=== PATIENT | female | born 1960 | race African-American/Black ===

== ENCOUNTER 2022-07-08 15:20 | Inpatient (IN) | payer OTHER, SELFPAY ==
[2022-07-08 15:49] VITALS: BP 119/72; BP 138/62; PULSE 104; PULSE 91; RESP 18; TEMP 37; O2SAT 95; O2SAT 97; BMI 30.2
--- NOTE | 2022-07-08 15:59 | ED.PSYCH ---
HPI - Psych General Chief Complaint: Psychiatric Symptoms Stated Complaint: psych eval Time Seen by Provider: 07/08/22 15:57 Source: patient Mode of arrival: ambulatory Limitations: no limitations History of Present Illness HPI Narrative: 62-year-old female hx of schizoaffective disorder, bipolar disorder, hypertension and hyperlipidemia presenting to the emergency department with complaints of erretic behavior, angry outburst, not feeling right since this morning. Patient tells me she started freaking out at home, she made family members cry, then she cried. She tells me that she has been taking all her medications however it was reported to EMS that she was not taking her medications. She tells me she feels like they are not helping. According to the Section 12 that patient was brought in on she has a history of self-harm, non med compliance. Patient does admit that she has been feeling it easily agitated and angry over the past day or 2. She tells me that she has a mild headache and she thinks it is because her contact lenses are dry, she tells me that this always happens. This feels like her typical headache, no vision changes, dizziness or head trauma. She denies visual, auditory and tactile hallucinations. Denies drugs, alcohol and tobacco. Denies suicidal and homicidal ideation. She denies any other medical complaints at this time. MD complaint: suicidal ideation Onset (ago): unknown Duration: constant Related Data Allergies Allergy/AdvReac Type Severity Reaction Status Date / Time latex Allergy Rash Verified 07/08/22 16:13 lithium Allergy Unknown Verified 07/08/22 16:13 Review of Systems Review of Systems: Constitutional : No Weight loss, No Fever, No Chills, No Fatigue, No Malaise ENT/Mouth : No sore throat, No Rhinorrhea Eyes: No Eye Pain, No Swelling, No Redness Cardiovascular : No Chest Pain, No SOB, No Dyspnea on Exertion, No Orthopnea, No Edema, No Palpitations Respiratory : No Cough, No Sputum, No Wheezing Gastrointestinal : No Nausea, No Vomiting, No Diarrhea, No Constipation, No abdominal Pain, No Hematochezia, No Melena Genitourinary : No Dysuria, No Urinary Frequency, No Hematuria, Musculoskeletal : No joint pain, No Myalgias, No Joint Swelling Skin : No Skin Lesions, No rash Neuro : No Weakness, No Numbness, No Dizziness, + Headache Psych : No Anxiety/Panic, No Depression, No VH,AH,TH, No SI or HI All other systems reviewed and are negative Yes all other systems are reviewed and are negative COUNTS INCLUDE 234 BEDS AT THE [facility] Past Medical History Attestation statement: The following information was validated with the patient. Source: old records reviewed and nursing notes reviewed Medical History (Updated 07/08/22 @ 16:12 by CUCA Stokes) Athlete's foot Bipolar disorder Hyperlipemia Hypertension Schizoaffective disorder Type 2 diabetes mellitus Social History Social History Advance Directives: No Advance Directives Information Provided: No Patient : No Physical Exam Vital Signs: Vital Signs: Last Vital Signs Temp 98.6 F 07/08/22 15:49 Pulse 91 07/08/22 15:49 Resp 18 07/08/22 15:49 BP 119/72 07/08/22 15:49 Pulse Ox 97 07/08/22 15:49 O2 Del Method 07/08/22 15:49 BMI result Body Mass Index 30.2 VSS Appearance: Alert.? Oriented X3.? No acute distress.? Head: Normocephalic, atraumatic, no step-offs or deformities Eyes: Pupils equal, round and reactive to light.?? Neck: Normal inspection.? Neck supple.? CVS: Normal heart rate and rhythm.? Pulses normal.? Respiratory: No respiratory distress.? Breath sounds normal.? Abdomen: Soft and nontender.? Skin: Skin warm and dry.? Normal skin color.? Normal skin turgor.? Extremities: No lower extremity edema.? No calf ttp. 5/5 strength to bilateral upper and lower extremities Neuro: Oriented X 3.? No motor deficit.? No sensory deficit. CN 2-12 intact. Ambulating with steady gait normal cordination Course Reevaluation(s) Reevaluation #1: CBC within normal limits. Chemistry without electrolyte abnormalities that require intervention. UA negative for infection, patient asymptomatic, epithelial cells present with may indicate contaminated specimen. Urine tox negative. Ethanol negative. COVID negative. At this time patient placed in physician observation to allow more time for evaluation by the behavioral health team. Patient's vital signs are stable, calm cooperative, NAD. Will continue to monitor. Time: 17:19 MDM - Psych MDM Narrative Medical decision making narrative: 1600 62-year-old female presents to the emergency department on Section 12 for erratic behavior, irritation/anger times a few days Physical examination benign Patient describes headache as her typical, she is ambulating with steady gait with a nonfocal neuro exam I do not suspect stroke or posterior stroke. Alison typical headache Plan at this time is to obtain medical clearance and evaluation by the behavioral health team. Medical Records Attestation: I reviewed the patient's medical records. Lab Data Attestation: I reviewed the patient's lab results. Result diagrams: 07/08/22 16:20 07/08/22 16:20 Labs: Lab Results 07/08/22 07/08/22 07/08/22 Range/Units 16:20 16:20 16:20 WBC 7.1 (4.8-10.8) X10*3/uL RBC 4.34 (4.20-5.50) X10*6/uL Hgb 12.5 (12.0-16.0) g/dl Hct 38.2 (37.0-47.0) % MCV 88.0 (80.0-98.0) fL MCH 28.8 (27.0-33.0) pg MCHC 32.7 (31.0-35.0) g/dl RDW 15.3 (11.0-16.0) % Plt Count 274 (160-400) X10*3/uL MPV 9.6 (9.4-12.3) fL Immature Gran % (Auto) 0.4 (0.0-0.4) % Neut % (Auto) 65.9 (45-73) % Lymph % (Auto) 25.1 (20-40) % Morris % (Auto) 6.6 (2-11) % Eos % (Auto) 1.7 (0-4) % Baso % (Auto) 0.3 (0-2) % Lymph # (Auto) 1.8 (1.2-4.9) X10*3/uL Morris # (Auto) 0.5 (0.1-1.2) X10*3/uL Eos # (Auto) 0.1 (0.0-0.4) X10*3/uL Baso # (Auto) 0.0 (0.0-0.2) X10*3/uL Abs Immat Gran (auto) 0.03 (0.00-0.03) X10*3/uL Absolute Neuts (auto) 4.7 (2.0-8.3) x10*3/uL Absolute Nucleated RBC 0.000 (0.0-0.012) X10*3/uL Nucleated RBC % (auto) 0.0 (0.0-0.2) /100WBC Sodium 139 (135-145) mmol/L Potassium 4.1 (3.3-5.1) mmol/L Chloride 104 (96-108) mmol/L Carbon Dioxide 25 (22-29) mmol/L Anion Gap 14 (12-20) BUN 9 (9-16) mg/dL Creatinine 0.75 (0.5-1.4) mg/dL Estim Creat Clear Calc 81.2 Estimated GFR > 60 Random Glucose 111 (60-115) mg/dL Calcium 9.3 (8.4-10.2) mg/dL Magnesium 1.6 (1.6-2.6) mg/dL Total Bilirubin 0.4 (0.0-1.0) mg/dL AST 22 (5-31) U/L ALT 22 (0-31) U/L Alkaline Phosphatase 55 (39-117) U/L Total Protein 7.9 (6.5-8.0) g/dL Albumin 4.5 (3.5-5.0) g/dL Urine Color Urine Appearance Urine pH (5.0-8.0) Ur Specific [place] (1.005-1.025) Urine Protein (NEG-TRACE) MG/DL Urine Glucose (UA) (NEG) MG/DL Urine Ketones (NEG) MG/DL Urine Blood (NEG) Urine Nitrite (NEG) Ur Leukocyte Esterase (NEG) Urine RBC (0) /HPF Urine WBC (0-4) /HPF Urine WBC Clumps Ur Squamous Epith Cells /LPF Amorphous Sediment /LPF Urine Bacteria /LPF Urine Opiates Screen (Not Detect) Urine Fentanyl Screen (Not Detect) Ur Barbiturates Screen (Not Detect) Ur Phencyclidine Scrn (Not Detect) Ur Amphetamines Screen (Not Detect) U Benzodiazepines Scrn (Not Detect) Urine Cocaine Screen (Not Detect) U Marijuana (THC) Screen (Not Detect) Ethyl Alcohol < 10 mg/dL COVID-19 (NILDA) Negative (Negative) COVID-19 Clin Com See Note 07/08/22 07/08/22 Range/Units 16:20 16:20 WBC (4.8-10.8) X10*3/uL RBC (4.20-5.50) X10*6/uL Hgb (12.0-16.0) g/dl Hct (37.0-47.0) % MCV (80.0-98.0) fL MCH (27.0-33.0) pg MCHC (31.0-35.0) g/dl RDW (11.0-16.0) % Plt Count (160-400) X10*3/uL MPV (9.4-12.3) fL Immature Gran % (Auto) (0.0-0.4) % Neut % (Auto) (45-73) % Lymph % (Auto) (20-40) % Morris % (Auto) (2-11) % Eos % (Auto) (0-4) % Baso % (Auto) (0-2) % Lymph # (Auto) (1.2-4.9) X10*3/uL Morris # (Auto) (0.1-1.2) X10*3/uL Eos # (Auto) (0.0-0.4) X10*3/uL Baso # (Auto) (0.0-0.2) X10*3/uL Abs Immat Gran (auto) (0.00-0.03) X10*3/uL Absolute Neuts (auto) (2.0-8.3) x10*3/uL Absolute Nucleated RBC (0.0-0.012) X10*3/uL Nucleated RBC % (auto) (0.0-0.2) /100WBC Sodium (135-145) mmol/L Potassium (3.3-5.1) mmol/L Chloride (96-108) mmol/L Carbon Dioxide (22-29) mmol/L Anion Gap (12-20) BUN (9-16) mg/dL Creatinine (0.5-1.4) mg/dL Estim Creat Clear Calc Estimated GFR Random Glucose (60-115) mg/dL Calcium (8.4-10.2) mg/dL Magnesium (1.6-2.6) mg/dL Total Bilirubin (0.0-1.0) mg/dL AST (5-31) U/L ALT (0-31) U/L Alkaline Phosphatase (39-117) U/L Total Protein (6.5-8.0) g/dL Albumin (3.5-5.0) g/dL Urine Color YELLOW Urine Appearance CLEAR Urine pH 5.5 (5.0-8.0) Ur Specific [place] <= 1.005 (1.005-1.025) Urine Protein NEG (NEG-TRACE) MG/DL Urine Glucose (UA) NEG (NEG) MG/DL Urine Ketones NEG (NEG) MG/DL Urine Blood NEG (NEG) Urine Nitrite NEG (NEG) Ur Leukocyte Esterase 2+ H (NEG) Urine RBC 0-2 (0) /HPF Urine WBC 15-29 H (0-4) /HPF Urine WBC Clumps NOTED Ur Squamous Epith Cells 1+ /LPF Amorphous Sediment TRACE /LPF Urine Bacteria NONE /LPF Urine Opiates Screen Not Detected (Not Detect) Urine Fentanyl Screen Not Detected (Not Detect) Ur Barbiturates Screen Not Detected (Not Detect) Ur Phencyclidine Scrn Not Detected (Not Detect) Ur Amphetamines Screen Not Detected (Not Detect) U Benzodiazepines Scrn Not Detected (Not Detect) Urine Cocaine Screen Not Detected (Not Detect) U Marijuana (THC) Screen Not Detected (Not Detect) Ethyl Alcohol mg/dL COVID-19 (NILDA) (Negative) COVID-19 Clin Com Critical Care Time Critical Care Time Critical Care Time: No Discharge Plan Discharge Clinical Impression: Bipolar disorder Patient Disposition: Still a Patient
[2022-07-08 16:30] LABS: MANUAL DIFF FLAG NO
[2022-07-08 16:33] LABS: Basophils Percent Auto 0.3 % (0-2); Eosinophils Absolute Auto 0.1 X10*3/uL (0.0-0.4); Eosinophils Percent Auto 1.7 % (0-4); Hematocrit 38.2 % (37.0-47.0); Hemoglobin 12.5 g/dl (12.0-16.0); Imm Gran Abs Auto 0.03 X10*3/uL (0.00-0.03); Imm Gran Pct Auto 0.4 % (0.0-0.4); Lymphocytes Absolute Auto 1.8 X10*3/uL (1.2-4.9); Lymphocytes Percent Auto 25.1 % (20-40); Mean Corpuscular HGB Conc 32.7 g/dl (31.0-35.0); Mean Corpuscular Hemoglobin 28.8 pg (27.0-33.0); Mean Platelet Volume 9.6 fL (9.4-12.3); Monocytes Absolute Auto 0.5 X10*3/uL (0.1-1.2); Monocytes Percent Auto 6.6 % (2-11); Neutrophils Absolute Auto 4.7 x10*3/uL (2.0-8.3); Neutrophils Percent Auto 65.9 % (45-73); Platelet Count 274 X10*3/uL (160-400); Red Blood Count 4.34 X10*6/uL (4.20-5.50); Red Cell Distribution Width 15.3 % (11.0-16.0); White Blood Count 7.1 X10*3/uL (4.8-10.8)
--- NOTE | 2022-07-08 16:37 | MHC.CARE ---
CARE team contacted [facility] crisis to inquire about the pt who arrived on a Section 12a. Pt has not yet received a full crisis evaluation. She has [facility] and began demonstrating delusional and erratic behavior, which was seemingly triggered by being informed that she had no more insurance coverage days for the admission, and she barricaded herself in her room at the program. She was transported to the ED for medical clearance and crisis assessment.
[2022-07-08 16:41] LABS: Appearance Urine CLEAR; Color Urine YELLOW; Glucose Urine UA NEG (NEG); Leukocyte Esterase Urine 2+ (NEG); Nitrite Urine NEG (NEG); PH 5.5 (5.0-8.0); Specific Gravity - Urine <= 1.005 (1.005-1.025); UACC Culture Trigger YES; Urine Blood NEG (NEG); Urine Ketones NEG (NEG); Urine Protein NEG (NEG-TRACE)
[2022-07-08 16:52] LABS: Alanine Aminotransferase 22 U/L (0-31); Albumin Level 4.5 g/dL (3.5-5.0); Alkaline Phosphatase 55 U/L (39-117); Amphetamine Screen Urine Not Detected (Not Detect); Anion Gap 14 (12-20); Aspartate Amino Transferase 22 U/L (5-31); Barbiturates, Urine Not Detected (Not Detect); Benzodiazepines Screen Urine Not Detected (Not Detect); Bilirubin Total 0.4 mg/dL (0.0-1.0); Blood Urea Nitrogen 9 mg/dL (9-16); Calcium 9.3 mg/dL (8.4-10.2); Cannabinoid Screen Urine Not Detected (Not Detect); Carbon Dioxide 25 mmol/L (22-29); Chloride 104 mmol/L (96-108); Cocaine Screen Urine Not Detected (Not Detect); Creatinine Clr Calc Pharmacy 81.2; Estimated Glomerular Filt Rate > 60; Ethanol < 10 mg/dL; Fentanyl, urine Not Detected (Not Detect); Glucose Random 111 mg/dL (60-115); Magnesium 1.6 mg/dL (1.6-2.6); Opiate Screen Urine Not Detected (Not Detect); Phencyclidine Screen Urine Not Detected (Not Detect); Potassium 4.1 mmol/L (3.3-5.1); Sodium 139 mmol/L (135-145); Total Protein 7.9 g/dL (6.5-8.0)
[2022-07-08 16:55] LABS: COVID-19 Test Negative (Negative); IDNOW Serial# 16C4AD1C
[2022-07-08] MEDS: Acetaminophen 325 MG TABLET 650 MG PO (17:03)
[2022-07-08 17:05] LABS: Squamous Epithelial Cell Urine 1+ /LPF
[2022-07-08 17:07] LABS: WBC Clumps Urine NOTED
[2022-07-08 17:09] LABS: Amorphous Sediment Urine TRACE /LPF; RBC Urine 0-2 /HPF (0)
[2022-07-08 18:00] VITALS: BP 118/69; PULSE 92; RESP 16; TEMP 36.8; O2SAT 99
--- NOTE | 2022-07-08 18:05 | PC.NURSE ---
prt a&ox3, vss, calm and cooperative, medicated for 1/10 headache, pt resting comfortably.
--- NOTE | 2022-07-08 22:04 | MHC.CARE ---
Pt was evaluated by the CARE team with disposition for inpt psychiatric admission.
--- NOTE | 2022-07-08 22:32 | PHA.MEDREC ---
Pharmacy Consult ? Medication Reconciliation Pharmacy has completed the medication reconciliation. LIST IN CHART [facility]
[2022-07-08] MEDS: traZODone HCL 100 MG TABLET PO (23:38)
[2022-07-08] MEDS: OLANZapine 7.5 MG TABLET 15 MG PO (23:38)
[2022-07-08] MEDS: LORazepam 1 MG TABLET PO (23:38)
[2022-07-08] MEDS: Sennosides 8.6 MG TABLET PO (23:39)
--- NOTE | 2022-07-09 | ECG_ITS ---
Test Reason : medical clearance Blood Pressure : / mmHG Vent. Rate : 068 BPM Atrial Rate : 068 BPM P-R Int : 168 ms QRS Dur : 078 ms QT Int : 384 ms P-R-T Axes : 050 002 067 degrees QTc Int : 408 ms Normal sinus rhythm with sinus arrhythmia Normal ECG No previous ECGs available Referred By: Nimo Bush Electronically Signed By:XENA STAHL
[2022-07-09 01:11] VITALS: BP 137/79; PULSE 97; RESP 17; TEMP 36.3; O2SAT 97
[2022-07-09 01:23] LABS: Appearance Urine HAZY; Color Urine STRAW; Glucose Urine UA NEG (NEG); Leukocyte Esterase Urine 3+ (NEG); Nitrite Urine NEG (NEG); Specific Gravity - Urine <= 1.005 (1.005-1.025); UACC Culture Trigger YES; Urine Blood TRACE (NEG); Urine Ketones NEG (NEG); Urine Protein NEG (NEG-TRACE)
[2022-07-09 01:28] LABS: Bacteria Urine 1+ /LPF; RBC Urine 0 /HPF (0); Squamous Epithelial Cell Urine 2+ /LPF; WBC Urine 30-49 /HPF (0-4)
[2022-07-09] MEDS: Acetaminophen 325 MG TABLET 650 MG PO ×3 (05:12→20:27)
--- NOTE | 2022-07-09 06:38 | PC.NURSE ---
Patient slept through the night, no distress observed/reported, medication compliant, behavior non concerning, thought content paranoid, disposition per care team is section 12 inpatient bed search, will continue to monitor.
--- NOTE | 2022-07-09 07:26 | PC.NURSE ---
patient appears to remain asleep at present respirations are even and unlabored patient appears in no distress
[2022-07-09 08:53] VITALS: BP 134/94; PULSE 94; RESP 17; TEMP 36.8; O2SAT 100
[2022-07-09] MEDS: metFORMIN HCl 1,000 MG TABLET 1000 MG PO ×2 (09:34→17:57)
[2022-07-09] MEDS: SITagliptin Phosphate 100 MG TABLET PO (09:34)
[2022-07-09] MEDS: Losartan Potassium 25 MG TABLET PO (09:35)
[2022-07-09] MEDS: glipiZIDE XL 2.5 MG TAB.ER.24 PO (09:35)
[2022-07-09] MEDS: Cyanocobalamin (Vitamin B-12) 1,000 MCG TABLET 1000 MCG PO (09:35)
[2022-07-09 16:11] VITALS: BP 139/78; PULSE 71; RESP 20; TEMP 36.7; O2SAT 97
[2022-07-09 16:13] VITALS: BMI 30.3
--- NOTE | 2022-07-09 16:28 | PC.NURSE ---
Nursing admission note: 62 year old female, DX: Schizoaffective disorder, bipolar type. Referred for treatment by CARE team. Arrived to [place] [facility] from [facility] due to increased agitation, disorganized behavior, and persecutory delusions. Patient easily engaged with good eye contact. Patient was calm and cooperative during admission assessment. Talkative. Reports she is here because at [facility] she was slamming doors, I threw things and was nasty . Per crisis evaluation patient was admitted to [facility] on 07/03/22 due to exacerbation of manic sx including poor sleep, irritability, mood lability, at one point during interview patient started to sob, followed by stating I am just tired . Speech is rapid and pressured. Flight of ideas, tangential. States she has a hard time focusing although denies racing thoughts. Patient endorses mood lability with periods of increased irritability. Denies SI/HI plan or intent at thjis time. Speech continues rapid and pressured. Presents with flight of ideas, loose associations, distractibility. Denies A/V hallucinations at this time although states she believes things in the world are connected. It is hard to explain . Patient reports poor sleep, difficulty falling and maintaining sleep. Denies appetite disturbances. Reports medication compliance, I am very careful with my meds, maybe they have stopped working . Reports history of HTN, diabetes and hyperlipidemia. Allergy to Latex and [place]. COVID negative. TOX screen negative. Fall 4 months ago at home, tripped and fell. Patient oriented to unit, placed on unit safety checks. See nursing assessment, crisis evaluation for complete details.
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
[2022-07-09 22:09] VITALS: BP 126/78; PULSE 70; RESP 16; TEMP 36.6; O2SAT 100
[2022-07-09] MEDS: OLANZapine 7.5 MG TABLET 15 MG PO (22:09)
[2022-07-09] MEDS: Atorvastatin Calcium 20 MG TABLET PO (22:09)
[2022-07-09] MEDS: Sennosides 8.6 MG TABLET PO (22:09)
[2022-07-09] MEDS: Topiramate 25 MG TABLET 50 MG PO (22:09)
[2022-07-09] MEDS: LORazepam 1 MG TABLET PO (22:10)
[2022-07-09] MEDS: traZODone HCL 100 MG TABLET PO (22:10)
[2022-07-09] MEDS: traZODone HCL 50 MG TABLET PO (22:10)
[2022-07-10 03:00] LABS: Glucose, Whole Blood 117 mg/dL (60-115)
[2022-07-10 08:16] LABS: Glucose, Whole Blood 143 mg/dL (60-115)
[2022-07-10] MEDS: Losartan Potassium 25 MG TABLET PO (08:52)
[2022-07-10] MEDS: lamoTRIgine 100 MG TABLET 250 MG PO (08:52)
[2022-07-10] MEDS: Cyanocobalamin (Vitamin B-12) 1,000 MCG TABLET 1000 MCG PO (08:52)
[2022-07-10] MEDS: SITagliptin Phosphate 100 MG TABLET PO (08:52)
[2022-07-10] MEDS: glipiZIDE XL 2.5 MG TAB.ER.24 PO (08:52)
[2022-07-10] MEDS: metFORMIN HCl 1,000 MG TABLET 1000 MG PO ×2 (08:52→16:22)
[2022-07-10 08:55] VITALS: BP 126/58; PULSE 67; RESP 17; TEMP 36.2; O2SAT 100
[2022-07-10 09:09] LABS: Estimated Average Glucose 154 mg/dL
[2022-07-10 09:34] LABS: Alanine Aminotransferase 21 U/L (0-31); Albumin Level 4.4 g/dL (3.5-5.0); Alkaline Phosphatase 55 U/L (39-117); Anion Gap 13 (12-20); Aspartate Amino Transferase 23 U/L (5-31); Bilirubin Total 0.4 mg/dL (0.0-1.0); Blood Urea Nitrogen 6 mg/dL (9-16); Calcium 9.7 mg/dL (8.4-10.2); Carbon Dioxide 26 mmol/L (22-29); Chloride 102 mmol/L (96-108); Cholesterol 134 mg/dL; Creatinine Clr Calc Pharmacy 83.6; Estimated Glomerular Filt Rate > 60; Glucose Fasting 134 mg/dL (60-99); HDL Cholesterol 48 mg/dL; LDL Cholesterol Calculated 60 mg/dl; Sodium 137 mmol/L (135-145); Total Protein 7.8 g/dL (6.5-8.0); Triglycerides 131 mg/dL
[2022-07-10 09:55] LABS: Free T4 (Free Thyroxine) 1.03 ng/dL (0.71-1.85); Thyroid Stimulating Hormone 1.27 uIU/mL (0.32-4.0)
[2022-07-10 10:00] LABS: Folate 19.1 ng/mL (> or = 4.0); Vitamin B12 524 pg/mL (200-900)
[2022-07-10] MEDS: hydrOXYzine HCL 25 MG TABLET PO (13:39)
[2022-07-10] MEDS: LORazepam 1 MG TABLET PO (18:16)
[2022-07-10] MEDS: Acetaminophen 325 MG TABLET 650 MG PO (20:24)
[2022-07-10 20:57] LABS: Glucose, Whole Blood 88 mg/dL (60-115)
[2022-07-10] MEDS: Sennosides 8.6 MG TABLET PO (20:57)
[2022-07-10] MEDS: Atorvastatin Calcium 20 MG TABLET PO (20:57)
[2022-07-10] MEDS: Topiramate 25 MG TABLET 100 MG PO (20:59)
[2022-07-10] MEDS: traZODone HCL 100 MG TABLET PO (21:36)
[2022-07-10] MEDS: chlorproMAZINE HCl 25 MG TABLET 50 MG PO (21:36)
[2022-07-10] MEDS: OLANZapine 7.5 MG TABLET PO (21:36)
--- NOTE | 2022-07-10 23:02 | P.PNPSI_ITS ---
Subjective Subjective Date of Service: 07/10/22 Reason For Visit: [place] Subjective Notes: Abraham Warning and Conditional Voluntary Healthcare Proxy: No Guardianship: No Medical Problems Affecting Mental Status: No Interim History: Patient seen and discussed with team. Patient evaluated today and upon interview pt is agitated, had cut her face while shaving as pt has hirtuism and she became quite dysregulated, ripping up tissue paper with her blood on it on the floor, became internally preoccupied, derailed, with flight of ideas. Pt ultimately calmed down and then says I handled myself, i handled my shit. Discussed med changes, doenst want seroquel due to wt gain potential and sedation, says [place] didnt work, made me fat, I couldnt do anything, says Depakote made me fat too. Doesnt want a med that requires lab work. Has a hard time falling asleep, got up before 7am. Asks for an increase in topamax. Denies SI/SIB/HI upon inquiry. Says she feels safe. Medication Compliance: Yes Side effects from medications: No Attending Groups: Intermittent Review of Systems Acute medical concerns: No Medical Review of Systems: unchanged Mental Status Exam Mental Status Exam Narrative: A&O. Pt is overweight, in hospital attire, glasses. Poor eye contact, attentive. No Tics or Tremors. No abnormal involuntary movements. Agitated, difficult to engage. Non-pressured speech, spontaneous with regular rate and rhythm, normal volume and prosody. No prolonged speech latency or dysarthria. Mood is [does not state], affect is agitated, labile. Denies SI/SIB/HI upon inquiry. Denies A/VH, pt appears paranoid. Thoughts are derailed, loose associations. No known cognitive or memory impairment. Insight/ Judgment limited. Diagnostics Vital Signs (24Hr): Vital Signs - 24 hr 07/10/22 08:55 Temperature 97.2 F Pulse Rate 67 Respiratory Rate 17 Blood Pressure 126/58 L Pulse Oximetry 100 Oxygen Delivery Method Room Air BMI result Body Mass Index 30.3 Labs Results: 07/08/22 16:20 07/10/22 08:27 Labs: Laboratory Results - last 48 hr 07/09/22 07/09/22 07/10/22 01:17 22:07 06:40 Sodium Potassium Chloride Carbon Dioxide Anion Gap BUN Creatinine Estim Creat Clear Calc Estimated GFR POC Glucose 117 H 143 H Fasting Glucose Estimat Average Glucose Hemoglobin A1c % Calcium Total Bilirubin AST ALT Alkaline Phosphatase Total Protein Albumin Triglycerides Cholesterol LDL Cholesterol, Calc HDL Cholesterol Vitamin B12 Folate TSH Free T4 Urine Color STRAW Urine Appearance HAZY Urine pH 7.0 Ur Specific [place] <= 1.005 Urine Protein NEG Urine Glucose (UA) NEG Urine Ketones NEG Urine Blood TRACE Urine Nitrite NEG Ur Leukocyte Esterase 3+ H Urine RBC 0 Urine WBC 30-49 H Ur Squamous Epith Cells 2+ Urine Bacteria 1+ 07/10/22 07/10/22 07/10/22 08:27 08:27 08:27 Sodium 137 Potassium 4.0 Chloride 102 Carbon Dioxide 26 Anion Gap 13 BUN 6 L Creatinine 0.73 Estim Creat Clear Calc 83.6 Estimated GFR > 60 POC Glucose Fasting Glucose 134 H Estimat Average Glucose 154 Hemoglobin A1c % 7.0 Calcium 9.7 Total Bilirubin 0.4 AST 23 ALT 21 Alkaline Phosphatase 55 Total Protein 7.8 Albumin 4.4 Triglycerides 131 Cholesterol 134 LDL Cholesterol, Calc 60 HDL Cholesterol 48 Vitamin B12 524 Folate 19.1 TSH 1.27 Free T4 1.03 Urine Color Urine Appearance Urine pH Ur Specific [place] Urine Protein Urine Glucose (UA) Urine Ketones Urine Blood Urine Nitrite Ur Leukocyte Esterase Urine RBC Urine WBC Ur Squamous Epith Cells Urine Bacteria 07/10/22 20:53 Sodium Potassium Chloride Carbon Dioxide Anion Gap BUN Creatinine Estim Creat Clear Calc Estimated GFR POC Glucose 88 Fasting Glucose Estimat Average Glucose Hemoglobin A1c % Calcium Total Bilirubin AST ALT Alkaline Phosphatase Total Protein Albumin Triglycerides Cholesterol LDL Cholesterol, Calc HDL Cholesterol Vitamin B12 Folate TSH Free T4 Urine Color Urine Appearance Urine pH Ur Specific [place] Urine Protein Urine Glucose (UA) Urine Ketones Urine Blood Urine Nitrite Ur Leukocyte Esterase Urine RBC Urine WBC Ur Squamous Epith Cells Urine Bacteria Medications Medications Current Medications Acetaminophen (Acetaminophen 325 Mg Tablet) 650 mg PO Q6H PRN PRN Reason: Headache/Pain Mild Scale (1-3) Last Admin: 07/10/22 20:24 Dose: 650 mg Al Hydroxide/Mg Hydroxide (Magnesium Hydrox/Alum Hydrox 30 Ml Oral.Susp) 30 ml PO Q6H PRN PRN Reason: Heartburn/Nausea Atorvastatin Calcium (Atorvastatin Calcium 20 Mg Tablet) 20 mg PO BEDTIME JULIAN Last Admin: 07/10/22 20:57 Dose: 20 mg Chlorpromazine HCl (Chlorpromazine Hcl 25 Mg Tablet) 50 mg PO BEDTIME JULIAN Last Admin: 07/10/22 21:36 Dose: 50 mg Cyanocobalamin (Cyanocobalamin (Vitamin B-12) 1,000 Mcg Tablet) 1,000 mcg PO DAILY JULIAN Last Admin: 07/10/22 08:52 Dose: 1,000 mcg Glipizide (Glipizide Xl 2.5 Mg Tab.Er.24) 2.5 mg PO DAILY JULIAN Last Admin: 07/10/22 08:52 Dose: 2.5 mg Hydroxyzine HCl (Hydroxyzine Hcl 25 Mg Tablet) 25 mg PO Q6H PRN PRN Reason: Anxiety Last Admin: 07/10/22 13:39 Dose: 25 mg Lamotrigine (Lamotrigine 100 Mg Tablet) 250 mg PO DAILY JULIAN Last Admin: 07/10/22 08:52 Dose: 250 mg Lorazepam (Lorazepam 1 Mg Tablet) 1 mg PO TID PRN PRN Reason: Anxiety Last Admin: 07/10/22 18:16 Dose: 1 mg Losartan Potassium (Losartan Potassium 25 Mg Tablet) 25 mg PO DAILY JULIAN; Pro tocol Last Admin: 07/10/22 08:52 Dose: 25 mg Magnesium Hydroxide (Milk Of Magnesia 30 Ml Oral.Susp) 30 ml PO DAILY PRN PRN Reason: Constipation Metformin HCl (Metformin Hcl 1,000 Mg Tablet) 1,000 mg PO BIDWM [facility] Last Admin: 07/10/22 16:22 Dose: 1,000 mg Nicotine Polacrilex (Nicotine Polacrilex 2 Mg Gum) 2 mg BUCCAL Q2H PRN PRN Reason: Nicotine Cravings Non-Formulary Medication (Lamotrigine) 1 tab PO DAILY [facility] Olanzapine (Olanzapine 7.5 Mg Tablet) 7.5 mg PO BEDTIME JULIAN Last Admin: 07/10/22 21:36 Dose: 7.5 mg Senna (Sennosides 8.6 Mg Tablet) 8.6 mg PO BEDTIME [facility] Last Admin: 07/10/22 20:57 Dose: 8.6 mg Sitagliptin Phosphate (Sitagliptin Phosphate 100 Mg Tablet) 100 mg PO DAILY [facility] Last Admin: 07/10/22 08:52 Dose: 100 mg Topiramate (Topiramate 25 Mg Tablet) 100 mg PO BEDTIME [facility] Last Admin: 07/10/22 20:59 Dose: 100 mg Trazodone HCl (Trazodone Hcl 100 Mg Tablet) 100 mg PO BEDTIME JULIAN Last Admin: 07/10/22 21:36 Dose: 100 mg Trazodone HCl (Trazodone Hcl 50 Mg Tablet) 50 mg PO BEDTIME PRN PRN Reason: Insomnia Last Admin: 07/09/22 22:10 Dose: 50 mg Ziprasidone (Ziprasidone 40 Mg Capsule) 40 mg PO BID@0900,1800 JULIAN Allergies Allergies Allergy/AdvReac Type Severity Reaction Status Date / Time latex Allergy Rash Verified 07/08/22 16:13 lithium Allergy Unknown Verified 07/08/22 16:13 Assessment & Plan Assessment & Plan (1) Schizoaffective disorder, bipolar type: Status: Acute Code(s): F25.0 - Schizoaffective disorder, bipolar type Plan Abimbola is a 62 y.o. female who carries a dx of schizoaffective disorder, bipolar type. She presented to [facility] on 07/08/2022 due to erratic behavior, angry outbursts, and ?not feeling right,? does not feel her meds are helping. Pt was recently admitted to [facility]/ respite on 07/03/2022 due to similar presentation, i.e. not feeling like herself, however no med changes were made there.? Plan: Will re-start topamax at 50 mg QHS, as pt reports past benefit on this med for sleep and asks to re-start it, additionally it may aid in wt loss (questionable evidence base). Pt says she does not like olanzapine because it is wt gaining and would like to be tried a different antipsychotic mood stabilizer.? 07/10: Increase topamax to 100 mg QHS, start thorazine 50 mg QHS for sleep. Pt is insistent on discontinuing olanzapine, willing to cross taper with another antipsychotic for mood stability, agitation. Will trial geodon, start 40 mg BID and decrease olanzapine to 7.5 mg QHS. Q15 min safety checks, CV Monitor response to medications. Monitor for safety in the milieu. Discharge on stabilization. Patient seen. Chart reviewed. Discussed with team. Obtain collateral contact info?as needed I spent minutes with the patient and/or on the patient floor today, greater than?50% of which was spent counseling/coordinating care. Patient educated on: diagnosis, medication risk/benefits and therapeutic strategies Reason for contiued inpatient stay Substantial Risk for: rapid decompensation and med/psych decompensation
[2022-07-11] MEDS: traZODone HCL 50 MG TABLET PO (00:08)
[2022-07-11] MEDS: LORazepam 1 MG TABLET PO ×4 (00:08→21:38)
[2022-07-11 07:00] VITALS: BMI 29.7
[2022-07-11 08:20] VITALS: BP 126/76; PULSE 104; RESP 20; TEMP 36.4; O2SAT 98
[2022-07-11] MEDS: Acetaminophen 325 MG TABLET 650 MG PO (08:25)
[2022-07-11] MEDS: Cyanocobalamin (Vitamin B-12) 1,000 MCG TABLET 1000 MCG PO (08:26)
[2022-07-11] MEDS: SITagliptin Phosphate 100 MG TABLET PO (08:26)
[2022-07-11] MEDS: glipiZIDE XL 2.5 MG TAB.ER.24 PO (08:27)
[2022-07-11] MEDS: metFORMIN HCl 1,000 MG TABLET 1000 MG PO ×2 (08:27→18:00)
[2022-07-11] MEDS: Losartan Potassium 25 MG TABLET PO (08:27)
[2022-07-11] MEDS: lamoTRIgine 100 MG TABLET 250 MG PO (08:28)
[2022-07-11 08:38] LABS: Glucose, Whole Blood 137 mg/dL (60-115)
[2022-07-11] MEDS: Ziprasidone 40 MG CAPSULE PO ×2 (09:05→18:00)
--- NOTE | 2022-07-11 17:17 | P.PNPSI_ITS ---
Subjective Subjective Date of Service: 07/11/22 Reason For Visit: [place] Subjective Notes: Abraham Warning and Conditional Voluntary Healthcare Proxy: No Guardianship: No Medical Problems Affecting Mental Status: No Interim History: I reviewed with team. I evaluated pt this evening and upon interview she reports she is doing better, had some anxiety after speaking with , trying to deal with anger issues, says her is a trigger. Likes her sleep meds, woke up once. Sleep is better, so far so good. Denies SI/SIB, I do feel safe. Medication Compliance: Yes Side effects from medications: No Attending Groups: Intermittent Review of Systems Acute medical concerns: No Medical Review of Systems: unchanged Mental Status Exam Mental Status Exam Narrative: A&O. Pt is overweight, in casual attire, glasses. Poor eye contact, attentive. No Tics or Tremors. No abnormal involuntary movements. Calm, cooperative today. Non-pressured speech, spontaneous with regular rate and rhythm, normal volume and prosody. No prolonged speech latency or dysarthria. Mood is good, affect is calmer. Denies SI/SIB/HI upon inquiry. Denies A/VH, less paranoid. Thoughts are goal oriented. No known cognitive or memory impairment. Insight/ Judgment limited. Diagnostics Vital Signs (24Hr): Vital Signs - 24 hr 07/11/22 08:20 Temperature 97.6 F Pulse Rate 104 H Respiratory Rate 20 Blood Pressure 126/76 Pulse Oximetry 98 Oxygen Delivery Method Room Air BMI result Body Mass Index 29.7 Labs Results: 07/08/22 16:20 07/10/22 08:27 Labs: Laboratory Results - last 48 hr 07/09/22 07/10/22 07/10/22 22:07 06:40 08:27 Sodium 137 Potassium 4.0 Chloride 102 Carbon Dioxide 26 Anion Gap 13 BUN 6 L Creatinine 0.73 Estim Creat Clear Calc 83.6 Estimated GFR > 60 POC Glucose 117 H 143 H Fasting Glucose 134 H Estimat Average Glucose Hemoglobin A1c % Calcium 9.7 Total Bilirubin 0.4 AST 23 ALT 21 Alkaline Phosphatase 55 Total Protein 7.8 Albumin 4.4 Triglycerides 131 Cholesterol 134 LDL Cholesterol, Calc 60 HDL Cholesterol 48 Vitamin B12 Folate TSH 1.27 Free T4 1.03 07/10/22 07/10/22 07/10/22 08:27 08:27 20:53 Sodium Potassium Chloride Carbon Dioxide Anion Gap BUN Creatinine Estim Creat Clear Calc Estimated GFR POC Glucose 88 Fasting Glucose Estimat Average Glucose 154 Hemoglobin A1c % 7.0 Calcium Total Bilirubin AST ALT Alkaline Phosphatase Total Protein Albumin Triglycerides Cholesterol LDL Cholesterol, Calc HDL Cholesterol Vitamin B12 524 Folate 19.1 TSH Free T4 07/11/22 08:24 Sodium Potassium Chloride Carbon Dioxide Anion Gap BUN Creatinine Estim Creat Clear Calc Estimated GFR POC Glucose 137 H Fasting Glucose Estimat Average Glucose Hemoglobin A1c % Calcium Total Bilirubin AST ALT Alkaline Phosphatase Total Protein Albumin Triglycerides Cholesterol LDL Cholesterol, Calc HDL Cholesterol Vitamin B12 Folate TSH Free T4 Medications Medications Current Medications Acetaminophen (Acetaminophen 325 Mg Tablet) 650 mg PO Q6H PRN PRN Reason: Headache/Pain Mild Scale (1-3) Last Admin: 07/11/22 08:25 Dose: 650 mg Al Hydroxide/Mg Hydroxide (Magnesium Hydrox/Alum Hydrox 30 Ml Oral.Susp) 30 ml PO Q6H PRN PRN Reason: Heartburn/Nausea Atorvastatin Calcium (Atorvastatin Calcium 20 Mg Tablet) 20 mg PO BEDTIME JULIAN Last Admin: 07/10/22 20:57 Dose: 20 mg Chlorpromazine HCl (Chlorpromazine Hcl 25 Mg Tablet) 50 mg PO BEDTIME JULIAN Last Admin: 07/10/22 21:36 Dose: 50 mg Cyanocobalamin (Cyanocobalamin (Vitamin B-12) 1,000 Mcg Tablet) 1,000 mcg PO DAILY COUNTS [facility]CLUDE 234 BEDS AT [facility] Last Admin: 07/11/22 08:26 Dose: 1,000 mcg Glipizide (Glipizide Xl 2.5 Mg Tab.Er.24) 2.5 mg PO DAILY JULIAN Last Admin: 07/11/22 08:27 Dose: 2.5 mg Hydroxyzine HCl (Hydroxyzine Hcl 25 Mg Tablet) 25 mg PO Q6H PRN PRN Reason: Anxiety Last Admin: 07/10/22 13:39 Dose: 25 mg Lamotrigine (Lamotrigine 100 Mg Tablet) 250 mg PO DAILY COUNTS [facility]CLUDE 234 BEDS AT [facility] Last Admin: 07/11/22 08:28 Dose: 250 mg Lorazepam (Lorazepam 1 Mg Tablet) 1 mg PO TID PRN PRN Reason: Anxiety Last Admin: 07/11/22 16:05 Dose: 1 mg Losartan Potassium (Losartan Potassium 25 Mg Tablet) 25 mg PO DAILY COUNTS INCLUDE 234 BEDS AT THE [facility]; Protocol Last Admin: 07/11/22 08:27 Dose: 25 mg Magnesium Hydroxide (Milk Of Magnesia 30 Ml Oral.Susp) 30 ml PO DAILY PRN PRN Reason: Constipation Metformin HCl (Metformin Hcl 1,000 Mg Tablet) 1,000 mg PO BIDWM COUNTS INCLUDE 234 BEDS AT THE [facility] Last Admin: 07/11/22 08:27 Dose: 1,000 mg Nicotine Polacrilex (Nicotine Polacrilex 2 Mg Gum) 2 mg BUCCAL Q2H PRN PRN Reason: Nicotine Cravings Non-Formulary Medication (Lamotrigine) 1 tab PO DAILY COUNTS INCLUDE 234 BEDS AT THE [facility] Olanzapine (Olanzapine 7.5 Mg Tablet) 7.5 mg PO BEDTIME COUNTS INCLUDE 234 BEDS AT THE [facility] Last Admin: 07/10/22 21:36 Dose: 7.5 mg Senna (Sennosides 8.6 Mg Tablet) 8.6 mg PO BEDTIME COUNTS INCLUDE 234 BEDS AT THE [facility] Last Admin: 07/10/22 20:57 Dose: 8.6 mg Sitagliptin Phosphate (Sitagliptin Phosphate 100 Mg Tablet) 100 mg PO DAILY COUNTS INCLUDE 234 BEDS AT THE [facility] Last Admin: 07/11/22 08:26 Dose: 100 mg Topiramate (Topiramate 25 Mg Tablet) 100 mg PO BEDTIME COUNTS INCLUDE 234 BEDS AT [facility] Last Admin: 07/10/22 20:59 Dose: 100 mg Trazodone HCl (Trazodone Hcl 100 Mg Tablet) 100 mg PO BEDTIME COUNTS INCLUDE 234 BEDS AT [facility] Last Admin: 07/10/22 21:36 Dose: 100 mg Trazodone HCl (Trazodone Hcl 50 Mg Tablet) 50 mg PO BEDTIME PRN PRN Reason: Insomnia Last Admin: 07/11/22 00:08 Dose: 50 mg Ziprasidone (Ziprasidone 40 Mg Capsule) 40 mg PO BID@0900,1800 COUNTS INCLUDE 234 BEDS AT [facility] Last Admin: 07/11/22 09:05 Dose: 40 mg Allergies Allergies Allergy/AdvReac Type Severity Reaction Status Date / Time latex Allergy Rash Verified 07/08/22 16:13 lithium Allergy Unknown Verified 07/08/22 16:13 Assessment & Plan Assessment & Plan (1) Schizoaffective disorder, bipolar type: Status: Acute Code(s): F25.0 - Schizoaffective disorder, bipolar type Plan Abimbola is a 62 y.o. female who carries a dx of schizoaffective disorder, bipolar type. She presented to [facility] on 07/08/2022 due to erratic behavior, angry outbursts, and ?not feeling right,? does not feel her meds are helping. Pt was recently admitted to [facility]/ respite on 07/03/2022 due to similar presentation, i.e. not feeling like herself, however no med changes were made there.? Plan: Will re-start topamax at 50 mg QHS, as pt reports past benefit on this med for sleep and asks to re-start it, additionally it may aid in wt loss (questionable evidence base). Pt says she does not like olanzapine because it is wt gaining and would like to be tried a different antipsychotic mood stabilizer.? 07/10: Increase topamax to 100 mg QHS, start thorazine 50 mg QHS for sleep. Pt is insistent on discontinuing olanzapine, willing to cross taper with another antipsychotic for mood stability, agitation. Will trial geodon, start 40 mg BID and decrease olanzapine to 7.5 mg QHS. 07/11: No medication changes, pt is sleeping better. Continue plan to taper off olanzapine and titrate up on ziprasidone as needed. Q15 min safety checks, CV Monitor response to medications. Monitor for safety in the milieu. Discharge on stabilization. Patient seen. Chart reviewed. Discussed with team. Obtain collateral contact info?as needed I spent minutes with the patient and/or on the patient floor today, great er than?50% of which was spent counseling/coordinating care. Patient educated on: medication risk/benefits and therapeutic strategies Reason for contiued inpatient stay Substantial Risk for: med/psych decompensation
[2022-07-11 20:45] VITALS: BP 98/64; PULSE 98; RESP 18; TEMP 36.2; O2SAT 100
[2022-07-11 20:45] LABS: Glucose, Whole Blood 115 mg/dL (60-115)
[2022-07-11] MEDS: Atorvastatin Calcium 20 MG TABLET PO (21:00)
[2022-07-11] MEDS: Topiramate 25 MG TABLET 100 MG PO (21:01)
[2022-07-11] MEDS: Sennosides 8.6 MG TABLET PO (21:01)
[2022-07-11] MEDS: Clotrimazole 1 % Cream 15 GM TUBE 1 APPL TOPICAL (21:04)
[2022-07-11] MEDS: traZODone HCL 100 MG TABLET PO (21:37)
[2022-07-11] MEDS: OLANZapine 7.5 MG TABLET PO (21:37)
[2022-07-11] MEDS: chlorproMAZINE HCl 25 MG TABLET 50 MG PO (21:38)
[2022-07-11] MEDS: Carbamide Peroxide 6.5% Otic 15 ML DRPBTL 5 DROP EAR-LEFT (21:45)
[2022-07-12 08:53] LABS: Glucose, Whole Blood 134 mg/dL (60-115)
[2022-07-12 09:15] VITALS: BP 109/64; PULSE 98; RESP 18; TEMP 36.2; O2SAT 100
[2022-07-12] MEDS: lamoTRIgine 100 MG TABLET 250 MG PO (09:21)
[2022-07-12] MEDS: Losartan Potassium 25 MG TABLET PO (09:22)
[2022-07-12] MEDS: metFORMIN HCl 1,000 MG TABLET 1000 MG PO ×2 (09:23→18:04)
[2022-07-12] MEDS: Ziprasidone 40 MG CAPSULE PO ×2 (09:23→18:04)
[2022-07-12] MEDS: glipiZIDE XL 2.5 MG TAB.ER.24 PO (09:23)
[2022-07-12] MEDS: Cyanocobalamin (Vitamin B-12) 1,000 MCG TABLET 1000 MCG PO (09:23)
[2022-07-12] MEDS: SITagliptin Phosphate 100 MG TABLET PO (09:24)
[2022-07-12] MEDS: Clotrimazole 1 % Cream 15 GM TUBE 1 APPL TOPICAL (12:36)
[2022-07-12] MEDS: Carbamide Peroxide 6.5% Otic 15 ML DRPBTL 5 DROP EAR-LEFT ×2 (12:36→22:03)
[2022-07-12] MEDS: Acetaminophen 325 MG TABLET 650 MG PO ×2 (13:03→18:51)
[2022-07-12] MEDS: LORazepam 1 MG TABLET PO ×2 (14:27→23:04)
--- NOTE | 2022-07-12 15:32 | HO.PSYCHPN ---
Subjective Subjective Date of Service: 07/12/22 Reason For Visit: [place] Interim History: pleasant, cooperative. pt reports she is trying to taper off of zyprexa due to weight gain and get onto geodon. agreeable to taper zyprexa from 7.5 mg QHS to 5 mg QHS as of tonight. will also need to taper thorazine and titrate geodon prior to discharge. no other complaints or requests. per staff, pleasant. denies SI/HI/AVH. c/o insect in her bed yesterday. irritable in the afternoon. sleeping well, feels medications are amazing! Mental Status Exam Mental Status Exam Narrative: A&O. Pt is overweight, in flowing gown, glasses. good eye contact, attentive. No Tics or Tremors. No abnormal involuntary movements. calm, cooperative. Non-pressured speech, spontaneous with regular rate and rhythm, normal volume and prosody. No prolonged speech latency or dysarthria. affect is calm, full range, normo-intense, non-labile. thoughts linear and logical. no SI/HI/AVH expressed. No known cognitive or memory impairment. Insight/ Judgment limited. Diagnostics Vital Signs (24Hr): Vital Signs - 24 hr 07/11/22 20:45 07/12/22 09:15 Temperature 97.2 F 97.2 F Pulse Rate 98 98 Respiratory Rate 18 18 Blood Pressure 98/64 109/64 Pulse Oximetry 100 100 Oxygen Delivery Method Room Air Room Air BMI result Body Mass Index 29.7 Labs Results: 07/08/22 16:20 07/10/22 08:27 Labs: Laboratory Results - last 48 hr 07/10/22 07/11/22 07/11/22 20:53 08:24 20:39 POC Glucose 88 137 H 115 07/12/22 08:47 POC Glucose 134 H Medications Medications Current Medications Acetaminophen (Acetaminophen 325 Mg Tablet) 650 mg PO Q6H PRN PRN Reason: Headache/Pain Mild Scale (1-3) Last Admin: 07/12/22 13:03 Dose: 650 mg Al Hydroxide/Mg Hydroxide (Magnesium Hydrox/Alum Hydrox 30 Ml Oral.Susp) 30 ml PO Q6H PRN PRN Reason: Heartburn/Nausea Atorvastatin Calcium (Atorvastatin Calcium 20 Mg Tablet) 20 mg PO BEDTIME JULIAN Last Admin: 07/11/22 21:00 Dose: 20 mg Carbamide Peroxide (Carbamide Peroxide 6.5% Otic 15 Ml Drpbtl) 5 drop EAR-LEFT BID JULIAN Stop: 07/15/22 18:57 Last Admin: 07/12/22 12:36 Dose: 5 drop Chlorpromazine HCl (Chlorpromazine Hcl 25 Mg Tablet) 50 mg PO BEDTIME JULIAN Last Admin: 07/11/22 21:38 Dose: 50 mg Clotrimazole (Clotrimazole 1 % Cream 15 Gm Tube) 1 appl TOPICAL BID JULIAN Last Admin: 07/12/22 12:36 Dose: 1 appl Cyanocobalamin (Cyanocobalamin (Vitamin B-12) 1,000 Mcg Tablet) 1,000 mcg PO DAILY [facility] Last Admin: 07/12/22 09:23 Dose: 1,000 mcg Glipizide (Glipizide Xl 2.5 Mg Tab.Er.24) 2.5 mg PO DAILY [facility] Last Admin: 07/12/22 09:23 Dose: 2.5 mg Hydroxyzine HCl (Hydroxyzine Hcl 25 Mg Tablet) 25 mg PO Q6H PRN PRN Reason: Anxiety Last Admin: 07/10/22 13:39 Dose: 25 mg Lamotrigine (Lamotrigine 100 Mg Tablet) 250 mg PO DAILY [facility] Last Admin: 07/12/22 09:21 Dose: 250 mg Lorazepam (Lorazepam 1 Mg Tablet) 1 mg PO TID PRN PRN Reason: Anxiety Last Admin: 07/12/22 14:27 Dose: 1 mg Losartan Potassium (Losartan Potassium 25 Mg Tablet) 25 mg PO DAILY [facility]; Protocol Last Admin: 07/12/22 09:22 Dose: 25 mg Magnesium Hydroxide (Milk Of Magnesia 30 Ml Oral.Susp) 30 ml PO DAILY PRN PRN Reason: Constipation Metformin HCl (Metformin Hcl 1,000 Mg Tablet) 1,000 mg PO BIDWM [facility] Last Admin: 07/12/22 09:23 Dose: 1,000 mg Nicotine Polacrilex (Nicotine Polacrilex 2 Mg Gum) 2 mg BUCCAL Q2H PRN PRN Reason: Nicotine Cravings Non-Formulary Medication (Lamotrigine) 1 tab PO DAILY [facility] Olanzapine (Olanzapine 5 Mg Tablet) 5 mg PO BEDTIME JULIAN Senna (Sennosides 8.6 Mg Tablet) 8.6 mg PO BEDTIME JULIAN Last Admin: 07/11/22 21:01 Dose: 8.6 mg Sitagliptin Phosphate (Sitagliptin Phosphate 100 Mg Tablet) 100 mg PO DAILY [facility] Last Admin: 07/12/22 09:24 Dose: 100 mg Topiramate (Topiramate 25 Mg Tablet) 100 mg PO BEDTIME [facility] Last Admin: 07/11/22 21:01 Dose: 100 mg Trazodone HCl (Trazodone Hcl 100 Mg Tablet) 100 mg PO BEDTIME [facility] Last Admin: 07/11/22 21:37 Dose: 100 mg Trazodone HCl (Trazodone Hcl 50 Mg Tablet) 50 mg PO BEDTIME PRN PRN Reason: Insomnia Last Admin: 07/11/22 00:08 Dose: 50 mg Ziprasidone (Ziprasidone 40 Mg Capsule) 40 mg PO BID@0900,1800 [facility] Last Admin: 07/12/22 09:23 Dose: 40 mg Allergies Allergies Allergy/AdvReac Type Severity Reaction Status Date / Time latex Allergy Rash Verified 07/08/22 16:13 lithium Allergy Unknown Verified 07/08/22 16:13 Assessment & Plan Assessment & Plan (1) Schizoaffective disorder, bipolar type: Status: Acute Code(s): F25.0 - Schizoaffective disorder, bipolar type Plan Abimbola is a 62 y.o. female who carries a dx of schizoaffective disorder, bipolar type. She presented to [facility] on 07/08/2022 due to erratic behavior, angry outbursts, and ?not feeling right,? does not feel her meds are helping. Pt was recently admitted to [facility]/ respite on 07/03/2022 due to similar presentation, i.e. not feeling like herself, however no med changes were made there.? Plan: Will re-start topamax at 50 mg QHS, as pt reports past benefit on this med for sleep and asks to re-start it, additionally it may aid in wt loss (questionable evidence base). Pt says she does not like olanzapine because it is wt gaining and would like to be tried a different antipsychotic mood stabilizer.? 07/10: Increase topamax to 100 mg QHS, start thorazine 50 mg QHS for sleep. Pt is insistent on discontinuing olanzapine, willing to cross taper with another antipsychotic for mood stability, agitation. Will trial geodon, start 40 mg BID and decrease olanzapine to 7.5 mg QHS. 07/12: decreased zyprexa to 5 mg QHS, plan to decrease by 2.5 mg nightly. then will need to taper thorazine 50 mg. titrate geodon as indicated. slept very well last night. Q15 min safety checks, CV Monitor response to medications. Monitor for safety in the milieu. Discharge on stabilization. Patient seen. Chart reviewed. Discussed with team. Obtain collateral contact info?as needed I spent ___25___ minutes with the patient and/or on the patient floor today, greater than?50% of which was spent counseling/coordinating care. Reason for contiued inpatient stay Substantial Risk for: inability to function and rapid decompensation
--- NOTE | 2022-07-12 17:11 | P.PNPSI_ITS ---
Subjective Subjective Reason For Visit: [facility] Vital Signs (24Hr): Vital Signs - 24 hr 07/11/22 20:45 07/12/22 09:15 Temperature 97.2 F 97.2 F Pulse Rate 98 98 Respiratory Rate 18 18 Blood Pressure 98/64 109/64 Pulse Oximetry 100 100 Oxygen Delivery Method Room Air Room Air BMI result Body Mass Index 29.7 Labs Results: 07/08/22 16:20 07/10/22 08:27 Labs: Laboratory Results - last 48 hr 07/10/22 07/11/22 07/11/22 20:53 08:24 20:39 POC Glucose 88 137 H 115 07/12/22 08:47 POC Glucose 134 H Medications Medications Current Medications Acetaminophen (Acetaminophen 325 Mg Tablet) 650 mg PO Q6H PRN PRN Reason: Headache/Pain Mild Scale (1-3) Last Admin: 07/12/22 13:03 Dose: 650 mg Al Hydroxide/Mg Hydroxide (Magnesium Hydrox/Alum Hydrox 30 Ml Oral.Susp) 30 ml PO Q6H PRN PRN Reason: Heartburn/Nausea Atorvastatin Calcium (Atorvastatin Calcium 20 Mg Tablet) 20 mg PO BEDTIME [facility] Last Admin: 07/11/22 21:00 Dose: 20 mg Carbamide Peroxide (Carbamide Peroxide 6.5% Otic 15 Ml Drpbtl) 5 drop EAR-LEFT BID [facility] Stop: 07/15/22 18:57 Last Admin: 07/12/22 12:36 Dose: 5 drop Chlorpromazine HCl (Chlorpromazine Hcl 25 Mg Tablet) 50 mg PO BEDTIME [facility] Last Admin: 07/11/22 21:38 Dose: 50 mg Clotrimazole (Clotrimazole 1 % Cream 15 Gm Tube) 1 appl TOPICAL BID [facility] Last Admin: 07/12/22 12:36 Dose: 1 appl Cyanocobalamin (Cyanocobalamin (Vitamin B-12) 1,000 Mcg Tablet) 1,000 mcg PO DAILY [facility] Last Admin: 07/12/22 09:23 Dose: 1,000 mcg Glipizide (Glipizide Xl 2.5 Mg Tab.Er.24) 2.5 mg PO DAILY [facility] Last Admin: 07/12/22 09:23 Dose: 2.5 mg Hydroxyzine HCl (Hydroxyzine Hcl 25 Mg Tablet) 25 mg PO Q6H PRN PRN Reason: Anxiety Last Admin: 07/10/22 13:39 Dose: 25 mg Lamotrigine (Lamotrigine 100 Mg Tablet) 250 mg PO DAILY [facility] Last Admin: 07/12/22 09:21 Dose: 250 mg Lorazepam (Lorazepam 1 Mg Tablet) 1 mg PO TID PRN PRN Reason: Anxiety Last Admin: 07/12/22 14:27 Dose: 1 mg Losartan Potassium (Losartan Potassium 25 Mg Tablet) 25 mg PO DAILY [facility]; Protocol Last Admin: 07/12/22 09:22 Dose: 25 mg Magnesium Hydroxide (Milk Of Magnesia 30 Ml Oral.Susp) 30 ml PO DAILY PRN PRN Reason: Constipation Metformin HCl (Metformin Hcl 1,000 Mg Tablet) 1,000 mg PO BIDWM [facility] Last Admin: 07/12/22 09:23 Dose: 1,000 mg Nicotine Polacrilex (Nicotine Polacrilex 2 Mg Gum) 2 mg BUCCAL Q2H PRN PRN Reason: Nicotine Cravings Non-Formulary Medication (Lamotrigine) 1 tab PO DAILY [facility] Olanzapine (Olanzapine 5 Mg Tablet) 5 mg PO BEDTIME [facility] Senna (Sennosides 8.6 Mg Tablet) 8.6 mg PO BEDTIME [facility] Last Admin: 07/11/22 21:01 Dose: 8.6 mg Sitagliptin Phosphate (Sitagliptin Phosphate 100 Mg Tablet) 100 mg PO DAILY [facility] Last Admin: 07/12/22 09:24 Dose: 100 mg Topiramate (Topiramate 25 Mg Tablet) 100 mg PO BEDTIME [facility] Last Admin: 07/11/22 21:01 Dose: 100 mg Trazodone HCl (Trazodone Hcl 100 Mg Tablet) 100 mg PO BEDTIME [facility] Last Admin: 07/11/22 21:37 Dose: 100 mg Trazodone HCl (Trazodone Hcl 50 Mg Tablet) 50 mg PO BEDTIME PRN PRN Reason: Insomnia Last Admin: 07/11/22 00:08 Dose: 50 mg Ziprasidone (Ziprasidone 40 Mg Capsule) 40 mg PO BID@0900,1800 [facility] Last Admin: 07/12/22 09:23 Dose: 40 mg Allergies Allergies Allergy/AdvReac Type Severity Reaction Status Date / Time latex Allergy Rash Verified 07/08/22 16:13 lithium Allergy Unknown Verified 07/08/22 16:13 Assessment & Plan Assessment & Plan (1) Schizoaffective disorder, bipolar type: Status: Acute Code(s): F25.0 - Schizoaffective disorder, bipolar type Plan Abimbola is a 62 y.o. female who carries a dx of schizoaffective disorder, bipolar type. She presented to [facility] on 07/08/2022 due to erratic behavior, angry outbursts, and ?not feeling right,? does not feel her meds are helping. Pt was recently admitted to [facility]/ respite on 07/03/2022 due to similar presentation, i.e. not feeling like herself, however no med changes were made there.? Plan: Will re-start topamax at 50 mg QHS, as pt reports past benefit on this med for sleep and asks to re-start it, additionally it may aid in wt loss (questionable evidence base). Pt says she does not like olanzapine because it is wt gaining and would like to be tried a different antipsychotic mood stabilizer.? 07/10: Increase topamax to 100 mg QHS, start thorazine 50 mg QHS for sleep. Pt is insistent on discontinuing olanzapine, willing to cross taper with another antipsychotic for mood stability, agitation. Will trial geodon, start 40 mg BID and decrease olanzapine to 7.5 mg QHS. 07/12: decreased zyprexa to 5 mg QHS, plan to decrease by 2.5 mg nightly. then will need to taper thorazine 50 mg. titrate geodon as indicated. slept very well last night. Q15 min safety checks, CV Monitor response to medications. Monitor for safety in the milieu. Discharge on stabilization. Patient seen. Chart reviewed. Discussed with team. Obtain collateral contact info?as needed I spent minutes with the patient and/or on the patient floor today, greater than?50% of which was spent counseling/coordinating care.
[2022-07-12 19:56] LABS: Glucose, Whole Blood 89 mg/dL (60-115)
[2022-07-12] MEDS: Atorvastatin Calcium 20 MG TABLET PO (20:52)
[2022-07-12] MEDS: Sennosides 8.6 MG TABLET PO (20:52)
[2022-07-12] MEDS: Topiramate 25 MG TABLET 100 MG PO (20:52)
[2022-07-12] MEDS: chlorproMAZINE HCl 25 MG TABLET 50 MG PO (21:55)
[2022-07-12] MEDS: traZODone HCL 100 MG TABLET PO (21:55)
[2022-07-12] MEDS: Sennosides 8.6 MG TABLET 17.2 MG PO (21:56)
[2022-07-12] MEDS: OLANZapine 5 MG TABLET PO (21:56)
[2022-07-12 22:00] VITALS: BP 112/71; PULSE 103; RESP 16; TEMP 36.3; O2SAT 100
[2022-07-12] MEDS: traZODone HCL 50 MG TABLET PO (23:04)
[2022-07-13] MEDS: lamoTRIgine 100 MG TABLET 250 MG PO (08:35)
[2022-07-13 08:36] LABS: Glucose, Whole Blood 123 mg/dL (60-115)
[2022-07-13] MEDS: Losartan Potassium 25 MG TABLET PO (08:36)
[2022-07-13] MEDS: SITagliptin Phosphate 100 MG TABLET PO (08:36)
[2022-07-13] MEDS: metFORMIN HCl 1,000 MG TABLET 1000 MG PO ×2 (08:36→17:39)
[2022-07-13] MEDS: glipiZIDE XL 2.5 MG TAB.ER.24 PO (08:36)
[2022-07-13] MEDS: Ziprasidone 40 MG CAPSULE PO ×2 (08:37→17:39)
[2022-07-13] MEDS: Carbamide Peroxide 6.5% Otic 15 ML DRPBTL 5 DROP EAR-LEFT ×2 (08:39→21:37)
[2022-07-13 08:45] VITALS: BP 114/65; PULSE 98; RESP 18; TEMP 36.2; O2SAT 98
[2022-07-13] MEDS: Cyanocobalamin (Vitamin B-12) 1,000 MCG TABLET 1000 MCG PO (08:49)
[2022-07-13] MEDS: Clotrimazole 1 % Cream 15 GM TUBE 1 APPL TOPICAL (11:39)
[2022-07-13] MEDS: Acetaminophen 325 MG TABLET 650 MG PO ×2 (12:20→18:46)
--- NOTE | 2022-07-13 14:22 | HO.PSYCHPN ---
Subjective Subjective Date of Service: 07/13/22 Reason For Visit: [facility] Affecting Mental Status: No Interim History: Appears to be gradually improving in mental state as per nursing. Aware of olanzapine is being tapered off and transition to Geodon. Patient reports overall things are going well. Managing frustration well What happens in the hospital stays in the hospital and did not elaborate on same. Denies SI. Feels safe. Did talk a lot about confidentiality and friends and acquaintances. Ask questions regarding medications. Medication Compliance: Yes Side effects from medications: No Attending Groups: Yes Review of Systems Acute medical concerns: No Review of Systems Review of Systems Unremarkable Mental Status Exam Mental Status Exam Narrative: pleasant. Engaged. Appropriately dressed. Fair hygiene. Largely euthymic. No SI. No HI. Slightly guarded at times. Insight and judgment improving Diagnostics Vital Signs (24Hr): Vital Signs - 24 hr 07/12/22 22:00 07/13/22 08:45 Temperature 97.3 F 97.2 F Pulse Rate 103 H 98 Respiratory Rate 16 18 Blood Pressure 112/71 114/65 Pulse Oximetry 100 98 Oxygen Delivery Method Room Air Room Air BMI result Body Mass Index 29.7 Labs Results: 07/08/22 16:20 07/10/22 08:27 Labs: Laboratory Results - last 48 hr 07/11/22 07/12/22 07/12/22 20:39 08:47 19:52 POC Glucose 115 134 H 89 07/13/22 08:33 POC Glucose 123 H Medications Medications Current Medications Acetaminophen (Acetaminophen 325 Mg Tablet) 650 mg PO Q6H PRN PRN Reason: Headache/Pain Mild Scale (1-3) Last Admin: 07/13/22 12:20 Dose: 650 mg Al Hydroxide/Mg Hydroxide (Magnesium Hydrox/Alum Hydrox 30 Ml Oral.Susp) 30 ml PO Q6H PRN PRN Reason: Heartburn/Nausea Atorvastatin Calcium (Atorvastatin Calcium 20 Mg Tablet) 20 mg PO BEDTIME [facility] Last Admin: 07/12/22 20:52 Dose: 20 mg Carbamide Peroxide (Carbamide Peroxide 6.5% Otic 15 Ml Drpbtl) 5 drop EAR-LEFT BID [facility] Stop: 07/15/22 18:57 Last Admin: 07/13/22 08:39 Dose: 5 drop Chlorpromazine HCl (Chlorpromazine Hcl 25 Mg Tablet) 50 mg PO BEDTIME [facility] Last Admin: 07/12/22 21:55 Dose: 50 mg Clotrimazole (Clotrimazole 1 % Cream 15 Gm Tube) 1 appl TOPICAL BID [facility] Last Admin: 07/13/22 11:39 Dose: 1 appl Cyanocobalamin (Cyanocobalamin (Vitamin B-12) 1,000 Mcg Tablet) 1,000 mcg PO DAILY [facility] Last Admin: 07/13/22 08:49 Dose: 1,000 mcg Glipizide (Glipizide Xl 2.5 Mg Tab.Er.24) 2.5 mg PO DAILY [facility] Last Admin: 07/13/22 08:36 Dose: 2.5 mg Hydroxyzine HCl (Hydroxyzine Hcl 25 Mg Tablet) 25 mg PO Q6H PRN PRN Reason: Anxiety Last Admin: 07/10/22 13:39 Dose: 25 mg Lamotrigine (Lamotrigine 100 Mg Tablet) 250 mg PO DAILY [facility] Last Admin: 07/13/22 08:35 Dose: 250 mg Lorazepam (Lorazepam 1 Mg Tablet) 1 mg PO TID PRN PRN Reason: Anxiety Last Admin: 07/12/22 23:04 Dose: 1 mg Losartan Potassium (Losartan Potassium 25 Mg Tablet) 25 mg PO DAILY [facility]; Protocol Last Admin: 07/13/22 08:36 Dose: 25 mg Magnesium Hydroxide (Milk Of Magnesia 30 Ml Oral.Susp) 30 ml PO DAILY PRN PRN Reason: Constipation Metformin HCl (Metformin Hcl 1,000 Mg Tablet) 1,000 mg PO BIDWM [facility] Last Admin: 07/13/22 08:36 Dose: 1,000 mg Nicotine Polacrilex (Nicotine Polacrilex 2 Mg Gum) 2 mg BUCCAL Q2H PRN PRN Reason: Nicotine Cravings Non-Formulary Medication (Lamotrigine) 1 tab PO DAILY [facility] Olanzapine (Olanzapine 2.5 Mg Tablet) 2.5 mg PO BEDTIME [facility] Senna (Sennosides 8.6 Mg Tablet) 17.2 mg PO BEDTIME [facility] Last Admin: 07/12/22 21:56 Dose: 8.6 mg Sitagliptin Phosphate (Sitagliptin Phosphate 100 Mg Tablet) 100 mg PO DAILY [facility] Last Admin: 07/13/22 08:36 Dose: 100 mg Topiramate (Topiramate 25 Mg Tablet) 100 mg PO BEDTIME [facility] Last Admin: 07/12/22 20:52 Dose: 100 mg Trazodone HCl (Trazodone Hcl 100 Mg Tablet) 100 mg PO BEDTIME [facility] Last Admin: 07/12/22 21:55 Dose: 100 mg Trazodone HCl (Trazodone Hcl 50 Mg Tablet) 50 mg PO BEDTIME PRN PRN Reason: Insomnia Last Admin: 07/12/22 23:04 Dose: 50 mg Ziprasidone (Ziprasidone 40 Mg Capsule) 40 mg PO BID@0900,1800 [facility] Last Admin: 07/13/22 08:37 Dose: 40 mg Allergies Allergies Allergy/AdvReac Type Severity Reaction Status Date / Time latex Allergy Rash Verified 07/08/22 16:13 lithium Allergy Unknown Verified 07/08/22 16:13 Assessment & Plan Assessment & Plan (1) Schizoaffective disorder, bipolar type: Status: Acute Code(s): F25.0 - Schizoaffective disorder, bipolar type Plan Abimbola is a 62 y.o. female who carries a dx of schizoaffective disorder, bipolar type. She presented to [facility] on 07/08/2022 due to erratic behavior, angry outbursts, and ?not feeling right,? does not feel her meds are helping. Pt was recently admitted to [facility]/ respite on 07/03/2022 due to similar presentation, i.e. not feeling like herself, however no med changes were made there.? Plan: Will re-start topamax at 50 mg QHS, as pt reports past benefit on this med for sleep and asks to re-start it, additionally it may aid in wt loss (questionable evidence base). Pt says she does not like olanzapine because it is wt gaining and would like to be tried a different antipsychotic mood stabilizer.? 07/10: Increase topamax to 100 mg QHS, start thorazine 50 mg QHS for sleep. Pt is insistent on discontinuing olanzapine, willing to cross taper with another antipsychotic for mood stability, agitation. Will trial geodon, start 40 mg BID and decrease olanzapine to 7.5 mg QHS. 07/11: No medication changes, pt is sleeping better. Continue plan to taper off olanzapine and titrate up on ziprasidone as needed. Q15 min safety checks, CV Monitor response to medications. Monitor for safety in the milieu. Discharge on stabilization. Patient seen. Chart reviewed. Discussed with team. Obtain collateral contact info?as needed 07/13/2022: Will lower olanzapine from 5 mg to 2.5 mg as ongoing taper and switch to ziprasidone. I spent minutes with the patient and/or on the patient floor today, greater than?50% of which was spent counseling/coordinating care. Reason for contiued inpatient stay Substantial Risk for: rapid decompensation
[2022-07-13 20:25] VITALS: BP 111/61; PULSE 91; RESP 18; TEMP 36.8; O2SAT 99
[2022-07-13] MEDS: Atorvastatin Calcium 20 MG TABLET PO (20:30)
[2022-07-13] MEDS: Topiramate 25 MG TABLET 100 MG PO (20:30)
[2022-07-13] MEDS: Sennosides 8.6 MG TABLET 17.2 MG PO (20:30)
[2022-07-13 20:36] LABS: Glucose, Whole Blood 118 mg/dL (60-115)
[2022-07-13] MEDS: traZODone HCL 100 MG TABLET PO (21:35)
[2022-07-13] MEDS: OLANZapine 2.5 MG TABLET PO (21:35)
[2022-07-13] MEDS: chlorproMAZINE HCl 25 MG TABLET 50 MG PO (21:35)
[2022-07-14] MEDS: Acetaminophen 325 MG TABLET 650 MG PO ×4 (03:25→22:13)
[2022-07-14 06:00] VITALS: BP 105/64; PULSE 88; TEMP 36.3; O2SAT 98
[2022-07-14] MEDS: metFORMIN HCl 1,000 MG TABLET 1000 MG PO ×2 (08:18→17:14)
[2022-07-14] MEDS: lamoTRIgine 100 MG TABLET 250 MG PO (08:18)
[2022-07-14] MEDS: Cyanocobalamin (Vitamin B-12) 1,000 MCG TABLET 1000 MCG PO (08:19)
[2022-07-14] MEDS: glipiZIDE XL 2.5 MG TAB.ER.24 PO (08:19)
[2022-07-14] MEDS: Losartan Potassium 25 MG TABLET PO (08:20)
[2022-07-14] MEDS: SITagliptin Phosphate 100 MG TABLET PO (08:20)
[2022-07-14] MEDS: Ziprasidone 40 MG CAPSULE PO ×2 (08:20→22:13)
[2022-07-14] MEDS: Carbamide Peroxide 6.5% Otic 15 ML DRPBTL 5 DROP EAR-LEFT (08:21)
[2022-07-14] MEDS: Clotrimazole 1 % Cream 15 GM TUBE 1 APPL TOPICAL ×2 (08:26→21:33)
[2022-07-14 09:00] LABS: Glucose, Whole Blood 118 mg/dL (60-115)
--- NOTE | 2022-07-14 11:57 | P.PNPSI_ITS ---
Subjective Subjective Date of Service: 07/14/22 Reason For Visit: [place] Interim History: Continues to reports overall things are going well. Asking about olanzapine tapering off and DC planning- hopeful for discharge by end of the week. Sleep ok. Mood ok. Denies SI. Feels safe. Medication Compliance: Yes Side effects from medications: No Attending Groups: Yes Review of Systems Acute medical concerns: No Review of Systems Review of Systems Unremarkable Mental Status Exam Mental Status Exam Narrative: pleasant. Engaged. Appropriately dressed. Fair hygiene. Largely euthymic. No SI. No HI. Less guarded. Insight and judgment improving Diagnostics Vital Signs (24Hr): Vital Signs - 24 hr 07/13/22 20:25 07/14/22 06:00 Temperature 98.2 F 97.4 F Pulse Rate 91 88 Respiratory Rate 18 Blood Pressure 111/61 105/64 Pulse Oximetry 99 98 Oxygen Delivery Method Room Air Room Air BMI result Body Mass Index 29.7 Labs Results: 07/08/22 16:20 07/10/22 08:27 Labs: Laboratory Results - last 48 hr 07/12/22 07/13/22 07/13/22 19:52 08:33 20:29 POC Glucose 89 123 H 118 H 07/14/22 08:56 POC Glucose 118 H Medications Medications Current Medications Acetaminophen (Acetaminophen 325 Mg Tablet) 650 mg PO Q6H PRN PRN Reason: Headache/Pain Mild Scale (1-3) Last Admin: 07/14/22 09:46 Dose: 650 mg Al Hydroxide/Mg Hydroxide (Magnesium Hydrox/Alum Hydrox 30 Ml Oral.Susp) 30 ml PO Q6H PRN PRN Reason: Heartburn/Nausea Atorvastatin Calcium (Atorvastatin Calcium 20 Mg Tablet) 20 mg PO BEDTIME [facility] Last Admin: 07/13/22 20:30 Dose: 20 mg Carbamide Peroxide (Carbamide Peroxide 6.5% Otic 15 Ml Drpbtl) 5 drop EAR-LEFT BID [facility] Stop: 07/15/22 18:57 Last Admin: 07/14/22 08:21 Dose: 5 drop Chlorpromazine HCl (Chlorpromazine Hcl 25 Mg Tablet) 50 mg PO BEDTIME [facility] Last Admin: 07/13/22 21:35 Dose: 50 mg Clotrimazole (Clotrimazole 1 % Cream 15 Gm Tube) 1 appl TOPICAL BID [facility] Last Admin: 07/14/22 08:26 Dose: 1 appl Cyanocobalamin (Cyanocobalamin (Vitamin B-12) 1,000 Mcg Tablet) 1,000 mcg PO DAILY [facility] Last Admin: 07/14/22 08:19 Dose: 1,000 mcg Glipizide (Glipizide Xl 2.5 Mg Tab.Er.24) 2.5 mg PO DAILY [facility] Last Admin: 07/14/22 08:19 Dose: 2.5 mg Hydroxyzine HCl (Hydroxyzine Hcl 25 Mg Tablet) 25 mg PO Q6H PRN PRN Reason: Anxiety Last Admin: 07/10/22 13:39 Dose: 25 mg Lamotrigine (Lamotrigine 100 Mg Tablet) 250 mg PO DAILY [facility] Last Admin: 07/14/22 08:18 Dose: 250 mg Losartan Potassium (Losartan Potassium 25 Mg Tablet) 25 mg PO DAILY [facility]; Protocol Last Admin: 07/14/22 08:20 Dose: 25 mg Magnesium Hydroxide (Milk Of Magnesia 30 Ml Oral.Susp) 30 ml PO DAILY PRN PRN Reason: Constipation Metformin HCl (Metformin Hcl 1,000 Mg Tablet) 1,000 mg PO BIDWM [facility] Last Admin: 07/14/22 08:18 Dose: 1,000 mg Nicotine Polacrilex (Nicotine Polacrilex 2 Mg Gum) 2 mg BUCCAL Q2H PRN PRN Reason: Nicotine Cravings Non-Formulary Medication (Lamotrigine) 1 tab PO DAILY [facility] Olanzapine (Olanzapine 2.5 Mg Tablet) 2.5 mg PO BEDTIME [facility] Last Admin: 07/13/22 21:35 Dose: 2.5 mg Senna (Sennosides 8.6 Mg Tablet) 17.2 mg PO BEDTIME [facility] Last Admin: 07/13/22 20:30 Dose: 17.2 mg Sitagliptin Phosphate (Sitagliptin Phosphate 100 Mg Tablet) 100 mg PO DAILY [facility] Last Admin: 07/14/22 08:20 Dose: 100 mg Topiramate (Topiramate 25 Mg Tablet) 100 mg PO BEDTIME [facility] Last Admin: 07/13/22 20:30 Dose: 100 mg Trazodone HCl (Trazodone Hcl 100 Mg Tablet) 100 mg PO BEDTIME [facility] Last Admin: 07/13/22 21:35 Dose: 100 mg Trazodone HCl (Trazodone Hcl 50 Mg Tablet) 50 mg PO BEDTIME PRN PRN Reason: Insomnia Last Admin: 07/12/22 23:04 Dose: 50 mg Ziprasidone (Ziprasidone 40 Mg Capsule) 40 mg PO BID@0900,1800 [facility] Last Admin: 07/14/22 08:20 Dose: 40 mg Allergies Allergies Allergy/AdvReac Type Severity Reaction Status Date / Time latex Allergy Rash Verified 07/08/22 16:13 lithium Allergy Unknown Verified 07/08/22 16:13 Assessment & Plan Assessment & Plan (1) Schizoaffective disorder, bipolar type: Status: Acute Code(s): F25.0 - Schizoaffective disorder, bipolar type Plan Abimbola is a 62 y.o. female who carries a dx of schizoaffective disorder, bipolar type. She presented to [facility] ED on 07/08/2022 due to erratic behavior, angry outbursts, and ?not feeling right,? does not feel her meds are helping. Pt was recently admitted to [facility]/ respite on 07/03/2022 due to similar presentation, i.e. not feeling like herself, however no med changes were made there.? Plan: Will re-start topamax at 50 mg QHS, as pt reports past benefit on this med for sleep and asks to re-start it, additionally it may aid in wt loss (questionable evidence base). Pt says she does not like olanzapine because it is wt gaining and would like to be tried a different antipsychotic mood stabilizer. ? 07/10: Increase topamax to 100 mg QHS, start thorazine 50 mg QHS for sleep. Pt is insistent on discontinuing olanzapine, willing to cross taper with another antipsychotic for mood stability, agitation. Will trial geodon, start 40 mg BID and decrease olanzapine to 7.5 mg QHS. 07/11: No medication changes, pt is sleeping better. Continue plan to taper off olanzapine and titrate up on ziprasidone as needed. Q15 min safety checks, CV Monitor response to medications. Monitor for safety in the milieu. Discharge on stabilization. Patient seen. Chart reviewed. Discussed with team. Obtain collateral contact info?as needed 07/13/2022: Will lower olanzapine from 5 mg to 2.5 mg as ongoing taper and switch to ziprasidone. 07/14: no change I spent minutes with the patient and/or on the patient floor today, greater than?50% of which was spent counseling/coordinating care. Reason for contiued inpatient stay Substantial Risk for: rapid decompensation
[2022-07-14 20:50] VITALS: BP 129/75; PULSE 104; RESP 18; TEMP 36.6; O2SAT 100
[2022-07-14 21:16] LABS: Glucose, Whole Blood 122 mg/dL (60-115)
[2022-07-14 21:21] VITALS: BP 138/80; PULSE 98; RESP 18; TEMP 36.4; O2SAT 100
[2022-07-14] MEDS: Atorvastatin Calcium 20 MG TABLET PO (21:32)
[2022-07-14] MEDS: Sennosides 8.6 MG TABLET 17.2 MG PO (21:32)
[2022-07-14] MEDS: Topiramate 25 MG TABLET 100 MG PO (21:32)
[2022-07-14] MEDS: OLANZapine 2.5 MG TABLET PO (22:12)
[2022-07-14] MEDS: chlorproMAZINE HCl 25 MG TABLET 50 MG PO (22:12)
[2022-07-14] MEDS: traZODone HCL 100 MG TABLET PO (22:13)
[2022-07-15] MEDS: traZODone HCL 50 MG TABLET PO ×2 (00:28→22:15)
[2022-07-15] MEDS: Acetaminophen 325 MG TABLET 650 MG PO (06:42)
[2022-07-15 07:50] VITALS: BP 118/70; PULSE 84; RESP 16; TEMP 36.5; O2SAT 100
[2022-07-15] MEDS: metFORMIN HCl 1,000 MG TABLET 1000 MG PO ×2 (08:01→17:06)
[2022-07-15] MEDS: Ziprasidone 40 MG CAPSULE PO ×2 (08:01→17:06)
[2022-07-15] MEDS: SITagliptin Phosphate 100 MG TABLET PO (08:02)
[2022-07-15] MEDS: lamoTRIgine 100 MG TABLET 250 MG PO (08:02)
[2022-07-15] MEDS: Losartan Potassium 25 MG TABLET PO (08:03)
[2022-07-15] MEDS: glipiZIDE XL 2.5 MG TAB.ER.24 PO (08:03)
[2022-07-15] MEDS: Cyanocobalamin (Vitamin B-12) 1,000 MCG TABLET 1000 MCG PO (08:09)
[2022-07-15 08:20] LABS: Glucose, Whole Blood 138 mg/dL (60-115)
--- NOTE | 2022-07-15 11:33 | HO.PSYCHPN ---
Subjective Subjective Date of Service: 07/15/22 Reason For Visit: [place] Subjective Notes: Conditional Voluntary Interim History: Pt reports she felt ignored, invalidated by someone last night. When asked about incident, pt states she does not want to talk about it but continues to express feeling ignored. She states is not in her mind, that it really happened. She states she can't talk about it as it will provoke further episodes of being ignored by whoever, treated her this way last night. Pt denies SI/HI. She denies VH/AH- but seen self dialoging. She also reports left ear pain, worsening- we discussed starting empiric tx of augmentin. Medication Compliance: Yes Side effects from medications: No Review of Systems Review of Systems Unremarkable Yes all other systems are reviewed and are negative Mental Status Exam Mental Status Exam Narrative: Appearance: casually groomed, fair hygiene in NAD Behavior:cooperative psychomotor:no agitation or retardation noted Speech:clear, normal rate/rhythm/volume, spontaneous Thought process:linear Thought content:feeling ignored, ear pain. Mood: ignored Affect: brightens at times, no distress SI:none HI:none VH/AH:talking to someone who was not there Delusions:?paranoia Insight/judgment:fair x 2. Memory/cog: alert, oriented x 3. not formally tested. Diagnostics Vital Signs (24Hr): Vital Signs - 24 hr 07/14/22 21:21 07/15/22 07:50 Temperature 97.6 F 97.7 F Pulse Rate 98 84 Respiratory Rate 18 16 Blood Pressure 138/80 118/70 Pulse Oximetry 100 100 Oxygen Delivery Method Room Air Room Air BMI result Body Mass Index 29.7 Labs Results: 07/08/22 16:20 07/10/22 08:27 Labs: Laboratory Results - last 48 hr 07/13/22 07/14/22 07/14/22 20:29 08:56 21:12 POC Glucose 118 H 118 H 122 H 07/15/22 07:41 POC Glucose 138 H Medications Medications Current Medications Acetaminophen (Acetaminophen 325 Mg Tablet) 650 mg PO Q6H PRN PRN Reason: Headache/Pain Mild Scale (1-3) Last Admin: 07/15/22 06:42 Dose: 650 mg Al Hydroxide/Mg Hydroxide (Magnesium Hydrox/Alum Hydrox 30 Ml Oral.Susp) 30 ml PO Q6H PRN PRN Reason: Heartburn/Nausea Amoxicillin/Clavulanate Potassium (Amoxicillin/Potassium Clav 500 Mg Tablet) 500 mg PO Q12H ON [facility] OF [facility] Stop: 07/22/22 13:29 Atorvastatin Calcium (Atorvastatin Calcium 20 Mg Tablet) 20 mg PO BEDTIME ON [facility] OF [facility] Last Admin: 07/14/22 21:32 Dose: 20 mg Carbamide Peroxide (Carbamide Peroxide 6.5% Otic 15 Ml Drpbtl) 5 drop EAR-LEFT BID ON [facility] OF [facility] Stop: 07/15/22 18:57 Last Admin: 07/15/22 08:57 Dose: Not Given Chlorpromazine HCl (Chlorpromazine Hcl 25 Mg Tablet) 50 mg PO BEDTIME ON [facility] Last Admin: 07/14/22 22:12 Dose: 50 mg Clotrimazole (Clotrimazole 1 % Cream 15 Gm Tube) 1 appl TOPICAL BID ON [facility] Last Admin: 07/15/22 08:57 Dose: Not Given Cyanocobalamin (Cyanocobalamin (Vitamin B-12) 1,000 Mcg Tablet) 1,000 mcg PO DAILY ON [facility] Last Admin: 07/15/22 08:09 Dose: 1,000 mcg Glipizide (Glipizide Xl 2.5 Mg Tab.Er.24) 2.5 mg PO DAILY [facility] Last Admin: 07/15/22 08:03 Dose: 2.5 mg Hydroxyzine HCl (Hydroxyzine Hcl 25 Mg Tablet) 25 mg PO Q6H PRN PRN Reason: Anxiety Last Admin: 07/10/22 13:39 Dose: 25 mg Lamotrigine (Lamotrigine 100 Mg Tablet) 250 mg PO DAILY [facility] Last Admin: 07/15/22 08:02 Dose: 250 mg Lorazepam (Lorazepam 1 Mg Tablet) 1 mg PO TID PRN PRN Reason: Anxiety Losartan Potassium (Losartan Potassium 25 Mg Tablet) 25 mg PO DAILY [facility]; Protocol Last Admin: 07/15/22 08:03 Dose: 25 mg Magnesium Hydroxide (Milk Of Magnesia 30 Ml Oral.Susp) 30 ml PO DAILY PRN PRN Reason: Constipation Metformin HCl (Metformin Hcl 1,000 Mg Tablet) 1,000 mg PO BIDWM ON [facility] Last Admin: 07/15/22 08:01 Dose: 1,000 mg Nicotine Polacrilex (Nicotine Polacrilex 2 Mg Gum) 2 mg BUCCAL Q2H PRN PRN Reason: Nicotine Cravings Non-Formulary Medication (Lamotrigine) 1 tab PO DAILY ON [facility] OF [facility] Olanzapine (Olanzapine 2.5 Mg Tablet) 2.5 mg PO BEDTIME ON [facility] Last Admin: 07/14/22 22:12 Dose: 2.5 mg Senna (Sennosides 8.6 Mg Tablet) 17.2 mg PO BEDTIME ON [facility] Last Admin: 07/14/22 21:32 Dose: 17.2 mg Sitagliptin Phosphate (Sitagliptin Phosphate 100 Mg Tablet) 100 mg PO DAILY [facility] Last Admin: 07/15/22 08:02 Dose: 100 mg Topiramate (Topiramate 25 Mg Tablet) 100 mg PO BEDTIME ON [facility] Last Admin: 07/14/22 21:32 Dose: 100 mg Trazodone HCl (Trazodone Hcl 100 Mg Tablet) 100 mg PO BEDTIME ON [facility] Last Admin: 07/14/22 22:13 Dose: 100 mg Trazodone HCl (Trazodone Hcl 50 Mg Tablet) 50 mg PO BEDTIME PRN PRN Reason: Insomnia Last Admin: 07/15/22 00:28 Dose: 50 mg Ziprasidone (Ziprasidone 40 Mg Capsule) 40 mg PO BID@0900,1800 ON [facility] Last Admin: 07/15/22 08:01 Dose: 40 mg Allergies Allergies Allergy/AdvReac Type Severity Reaction Status Date / Time latex Allergy Rash Verified 07/08/22 16:13 lithium Allergy Unknown Verified 07/08/22 16:13 Assessment & Plan Assessment & Plan (1) Schizoaffective disorder, bipolar type: Status: Acute Code(s): F25.0 - Schizoaffective disorder, bipolar type Plan Abimbola is a 62 y.o. female who carries a dx of schizoaffective disorder, bipolar type. She presented to [facility] on 07/08/2022 due to erratic behavior, angry outbursts, and ?not feeling right,? does not feel her meds are helping. Pt was recently admitted to [facility]/ respite on 07/03/2022 due to similar presentation, i.e. not feeling like herself, however no med changes were made there.? Plan: Will re-start topamax at 50 mg QHS, as pt reports past benefit on this med for sleep and asks to re-start it, additionally it may aid in wt loss (questionable evidence base). Pt says she does not like olanzapine because it is wt gaining and would like to be tried a different antipsychotic mood stabilizer.? 07/10: Increase topamax to 100 mg QHS, start thorazine 50 mg QHS for sleep. Pt is insistent on discontinuing olanzapine, willing to cross taper with another antipsychotic for mood stability, agitation. Will trial geodon, start 40 mg BID and decrease olanzapine to 7.5 mg QHS. 07/11: No medication changes, pt is sleeping better. Continue plan to taper off olanzapine and titrate up on ziprasidone as needed. Q15 min safety checks, CV Monitor response to medications. Monitor for safety in the milieu. Discharge on stabilization. Patient seen. Chart reviewed. Discussed with team. Obtain collateral contact info?as needed 07/13/2022: Will lower olanzapine from 5 mg to 2.5 mg as ongoing taper and switch to ziprasidone. 07/14: no change 07/15 start aumentin 500mg po BID x 7 days for ear pain. continue all other meds as prescribed. I spent minutes with the patient and/or on the patient floor today, greater than?50% of which was spent counseling/coordinating care. Reason for contiued inpatient stay Substantial Risk for: inability to function
[2022-07-15] MEDS: Amoxicillin/Potassium Clav 500 MG TABLET PO ×2 (13:59→21:08)
[2022-07-15 20:55] LABS: Glucose, Whole Blood 138 mg/dL (60-115)
[2022-07-15] MEDS: Atorvastatin Calcium 20 MG TABLET PO (21:06)
[2022-07-15] MEDS: Topiramate 25 MG TABLET 100 MG PO (21:07)
[2022-07-15] MEDS: Sennosides 8.6 MG TABLET 17.2 MG PO (21:07)
[2022-07-15] MEDS: chlorproMAZINE HCl 25 MG TABLET 50 MG PO (22:11)
[2022-07-15] MEDS: OLANZapine 2.5 MG TABLET PO (22:11)
[2022-07-15] MEDS: traZODone HCL 100 MG TABLET PO (22:11)
[2022-07-15] MEDS: LORazepam 1 MG TABLET PO (22:11)
[2022-07-15] MEDS: Clotrimazole 1 % Cream 15 GM TUBE 1 APPL TOPICAL (22:13)
[2022-07-16] MEDS: Acetaminophen 325 MG TABLET 650 MG PO ×2 (00:59→09:24)
[2022-07-16] MEDS: LORazepam 1 MG TABLET PO ×2 (01:03→22:13)
[2022-07-16 08:30] VITALS: BP 119/72; PULSE 101; RESP 18; TEMP 36.7; O2SAT 100
[2022-07-16 08:36] LABS: Glucose, Whole Blood 135 mg/dL (60-115)
--- NOTE | 2022-07-16 08:36 | P.PNPSI_ITS ---
Subjective Subjective Date of Service: 07/16/22 Reason For Visit: [place] Subjective Notes: Conditional Voluntary Interim History: Pt reports her was concerned about her prior to this admission. She reports she also noted changes in that she was more angry, irritable and was not sleeping well. She continues to present with expansive affect, some suspiciousness about staff and her . She hopes to be discharged soon. We discussed increasing geodone. Medication Compliance: Yes Side effects from medications: No Attending Groups: No Review of Systems Review of Systems Unremarkable Yes all other systems are reviewed and are negative Mental Status Exam Mental Status Exam Narrative: Appearance: casually groomed, fair hygiene in NAD Behavior:cooperative psychomotor:no agitation or retardation noted Speech:clear, normal rate/rhythm/volume, spontaneous Thought process:linear Thought content:feeling ignored, ear pain. Mood: ignored Affect: brightens at times, no distress SI:none HI:none VH/AH:talking to someone who was not there Delusions:?paranoia Insight/judgment:fair x 2. Memory/cog: alert, oriented x 3. not formally tested. Diagnostics Vital Signs (24Hr): Vital Signs - 24 hr 07/16/22 21:30 Temperature 97.6 F Pulse Rate 104 H Respiratory Rate 18 Blood Pressure 124/71 Pulse Oximetry 100 Oxygen Delivery Method Room Air BMI result Body Mass Index 29.7 Labs Results: 07/08/22 16:20 07/10/22 08:27 Labs: Laboratory Results - last 48 hr 07/15/22 07/16/22 07/16/22 20:48 08:09 17:11 POC Glucose 138 H 135 H 119 H 07/16/22 07/17/22 21:02 08:03 POC Glucose 141 H 178 H Medications Medications Current Medications Acetaminophen (Acetaminophen 325 Mg Tablet) 650 mg PO Q6H PRN PRN Reason: Headache/Pain Mild Scale (1-3) Last Admin: 07/17/22 05:03 Dose: 650 mg Al Hydroxide/Mg Hydroxide (Magnesium Hydrox/Alum Hydrox 30 Ml Oral.Susp) 30 ml PO Q6H PRN PRN Reason: Heartburn/Nausea Amoxicillin/Clavulanate Potassium (Amoxicillin/Potassium Clav 500 Mg Tablet) 500 mg PO Q12H [facility] Last Admin: 07/17/22 08:21 Dose: 500 mg Atorvastatin Calcium (Atorvastatin Calcium 20 Mg Tablet) 20 mg PO BEDTIME [facility] Last Admin: 07/16/22 21:37 Dose: 20 mg Chlorpromazine HCl (Chlorpromazine Hcl 25 Mg Tablet) 50 mg PO BEDTIME [facility] Last Admin: 07/16/22 22:08 Dose: 50 mg Clotrimazole (Clotrimazole 1 % Cream 15 Gm Tube) 1 appl TOPICAL BID [facility] Last Admin: 07/16/22 22:14 Dose: 1 appl Cyanocobalamin (Cyanocobalamin (Vitamin B-12) 1,000 Mcg Tablet) 1,000 mcg PO DAILY [facility] Last Admin: 07/17/22 08:21 Dose: 1,000 mcg Glipizide (Glipizide Xl 2.5 Mg Tab.Er.24) 2.5 mg PO DAILY [facility] Last Admin: 07/17/22 08:21 Dose: 2.5 mg Hydroxyzine HCl (Hydroxyzine Hcl 25 Mg Tablet) 25 mg PO Q6H PRN PRN Reason: Anxiety Last Admin: 07/10/22 13:39 Dose: 25 mg Lamotrigine (Lamotrigine 100 Mg Tablet) 250 mg PO DAILY [facility] Last Admin: 07/17/22 08:21 Dose: 250 mg Lorazepam (Lorazepam 1 Mg Tablet) 1 mg PO TID PRN PRN Reason: Anxiety Last Admin: 07/17/22 05:03 Dose: 1 mg Losartan Potassium (Losartan Potassium 25 Mg Tablet) 25 mg PO DAILY [facility]; Protocol Last Admin: 07/17/22 08:21 Dose: 25 mg Magnesium Hydroxide (Milk Of Magnesia 30 Ml Oral.Susp) 30 ml PO DAILY PRN PRN Reason: Constipation Metformin HCl (Metformin Hcl 1,000 Mg Tablet) 1,000 mg PO BIDWM [facility] Last Admin: 07/17/22 08:21 Dose: 1,000 mg Nicotine Polacrilex (Nicotine Polacrilex 2 Mg Gum) 2 mg BUCCAL Q2H PRN PRN Reason: Nicotine Cravings Non-Formulary Medication (Lamotrigine) 1 tab PO DAILY [facility] Senna (Sennosides 8.6 Mg Tablet) 17.2 mg PO BEDTIME [facility] Last Admin: 07/16/22 21:37 Dose: 17.2 mg Sitagliptin Phosphate (Sitagliptin Phosphate 100 Mg Tablet) 100 mg PO DAILY [facility] Last Admin: 07/17/22 08:20 Dose: 100 mg Topiramate (Topiramate 25 Mg Tablet) 100 mg PO BEDTIME [facility] Last Admin: 07/16/22 21:37 Dose: 100 mg Trazodone HCl (Trazodone Hcl 100 Mg Tablet) 100 mg PO BEDTIME [facility] Last Admin: 07/16/22 22:08 Dose: 100 mg Trazodone HCl (Trazodone Hcl 50 Mg Tablet) 50 mg PO BEDTIME PRN PRN Reason: Insomnia Last Admin: 07/16/22 22:13 Dose: 50 mg Ziprasidone (Ziprasidone 60 Mg Capsule) 60 mg PO BID@0900,1800 [facility] Last Admin: 07/16/22 17:56 Dose: 60 mg Allergies Allergies Allergy/AdvReac Type Severity Reaction Status Date / Time latex Allergy Rash Verified 07/08/22 16:13 lithium Allergy Unknown Verified 07/08/22 16:13 Assessment & Plan Assessment & Plan (1) Schizoaffective disorder, bipolar type: Status: Acute Code(s): F25.0 - Schizoaffective disorder, bipolar type Plan Abimbola is a 62 y.o. female who carries a dx of schizoaffective disorder, bipolar type. She presented to [facility] on 07/08/2022 due to erratic behavior, angry outbursts, and ?not feeling right,? does not feel her meds are helping. Pt was recently admitted to [facility]/ respite on 07/03/2022 due to similar presentation, i.e. not feeling like herself, however no med changes were made there.? Plan: Will re-start topamax at 50 mg QHS, as pt reports past benefit on this med for sleep and asks to re-start it, additionally it may aid in wt loss (ques tionable evidence base). Pt says she does not like olanzapine because it is wt gaining and would like to be tried a different antipsychotic mood stabilizer.? 07/10: Increase topamax to 100 mg QHS, start thorazine 50 mg QHS for sleep. Pt is insistent on discontinuing olanzapine, willing to cross taper with another antipsychotic for mood stability, agitation. Will trial geodon, start 40 mg BID and decrease olanzapine to 7.5 mg QHS. 07/11: No medication changes, pt is sleeping better. Continue plan to taper off olanzapine and titrate up on ziprasidone as needed. Q15 min safety checks, CV Monitor response to medications. Monitor for safety in the milieu. Discharge on stabilization. Patient seen. Chart reviewed. Discussed with team. Obtain collateral contact info?as needed 07/13/2022: Will lower olanzapine from 5 mg to 2.5 mg as ongoing taper and switch to ziprasidone. 07/14: no change 07/15 start aumentin 500mg po BID x 7 days for ear pain. continue all other meds as prescribed. 07/16- increase geodone to 60mg po BID. I spent minutes with the patient and/or on the patient floor today, greater than?50% of which was spent counseling/coordinating care. Reason for contiued inpatient stay Substantial Risk for: inability to function
[2022-07-16] MEDS: SITagliptin Phosphate 100 MG TABLET PO (09:22)
[2022-07-16] MEDS: glipiZIDE XL 2.5 MG TAB.ER.24 PO (09:22)
[2022-07-16] MEDS: metFORMIN HCl 1,000 MG TABLET 1000 MG PO ×2 (09:22→17:56)
[2022-07-16] MEDS: Amoxicillin/Potassium Clav 500 MG TABLET PO ×2 (09:22→21:37)
[2022-07-16] MEDS: lamoTRIgine 100 MG TABLET 250 MG PO (09:23)
[2022-07-16] MEDS: Ziprasidone 40 MG CAPSULE PO (09:23)
[2022-07-16] MEDS: Losartan Potassium 25 MG TABLET PO (09:23)
[2022-07-16] MEDS: Cyanocobalamin (Vitamin B-12) 1,000 MCG TABLET 1000 MCG PO (09:24)
[2022-07-16] MEDS: Clotrimazole 1 % Cream 15 GM TUBE 1 APPL TOPICAL ×2 (09:25→22:14)
[2022-07-16 17:32] LABS: Glucose, Whole Blood 119 mg/dL (60-115)
[2022-07-16] MEDS: Ziprasidone 60 MG CAPSULE PO (17:56)
[2022-07-16 21:14] LABS: Glucose, Whole Blood 141 mg/dL (60-115)
[2022-07-16 21:30] VITALS: BP 124/71; PULSE 104; RESP 18; TEMP 36.4; O2SAT 100
[2022-07-16] MEDS: Topiramate 25 MG TABLET 100 MG PO (21:37)
[2022-07-16] MEDS: Atorvastatin Calcium 20 MG TABLET PO (21:37)
[2022-07-16] MEDS: Sennosides 8.6 MG TABLET 17.2 MG PO (21:37)
[2022-07-16] MEDS: chlorproMAZINE HCl 25 MG TABLET 50 MG PO (22:08)
[2022-07-16] MEDS: traZODone HCL 100 MG TABLET PO (22:08)
[2022-07-16] MEDS: traZODone HCL 50 MG TABLET PO (22:13)
[2022-07-17] MEDS: LORazepam 1 MG TABLET PO (05:03)
[2022-07-17] MEDS: Acetaminophen 325 MG TABLET 650 MG PO ×2 (05:03→20:26)
[2022-07-17 08:15] VITALS: BP 102/67; PULSE 100; RESP 16; TEMP 36.7; O2SAT 98
[2022-07-17] MEDS: SITagliptin Phosphate 100 MG TABLET PO (08:20)
[2022-07-17] MEDS: metFORMIN HCl 1,000 MG TABLET 1000 MG PO ×2 (08:21→16:41)
[2022-07-17] MEDS: Amoxicillin/Potassium Clav 500 MG TABLET PO ×2 (08:21→20:28)
[2022-07-17] MEDS: Cyanocobalamin (Vitamin B-12) 1,000 MCG TABLET 1000 MCG PO (08:21)
[2022-07-17] MEDS: Losartan Potassium 25 MG TABLET PO (08:21)
[2022-07-17] MEDS: glipiZIDE XL 2.5 MG TAB.ER.24 PO (08:21)
[2022-07-17] MEDS: lamoTRIgine 100 MG TABLET 250 MG PO (08:21)
[2022-07-17 08:29] LABS: Glucose, Whole Blood 178 mg/dL (60-115)
[2022-07-17] MEDS: Ziprasidone 60 MG CAPSULE PO ×2 (09:31→18:05)
[2022-07-17 09:52] LABS: Creatinine Clr Calc Pharmacy 83.8; Estimated Glomerular Filt Rate > 60
--- NOTE | 2022-07-17 14:13 | P.PNPSI_ITS ---
Subjective Subjective Date of Service: 07/17/22 Reason For Visit: [place] Subjective Notes: Conditional Voluntary Interim History: Pt initially upset, because she states she was told she was leaving today. We discussed this was not the plan with primary team and she was offered 3 day. She continues to present with expansive mood, some paranoia towards staff and hus band. She later spoke with her who advised her to stay a bit longer on the unit as she is not stable. Pt agreed to retract 3 day notice and work with team. Medication Compliance: Yes Side effects from medications: No Attending Groups: Intermittent Review of Systems Review of Systems Unremarkable Yes all other systems are reviewed and are negative Mental Status Exam Mental Status Exam Narrative: Appearance: casually groomed, fair hygiene in NAD Behavior:cooperative psychomotor:no agitation or retardation noted Speech:clear, normal rate/rhythm/volume, spontaneous Thought process:linear Thought content:feeling ignored, ear pain. Mood: ignored Affect: brightens at times, no distress SI:none HI:none VH/AH:talking to someone who was not there Delusions:?paranoia Insight/judgment:fair x 2. Memory/cog: alert, oriented x 3. not formally tested. Diagnostics Vital Signs (24Hr): Vital Signs - 24 hr 07/16/22 21:30 07/17/22 08:15 Temperature 97.6 F 98.1 F Pulse Rate 104 H 100 Respiratory Rate 18 16 Blood Pressure 124/71 102/67 Pulse Oximetry 100 98 Oxygen Delivery Method Room Air Room Air BMI result Body Mass Index 29.7 Labs Results: 07/08/22 16:20 07/17/22 08:41 Labs: Laboratory Results - last 48 hr 07/15/22 07/16/22 07/16/22 20:48 08:09 17:11 Creatinine Estim Creat Clear Calc Estimated GFR POC Glucose 138 H 135 H 119 H 07/16/22 07/17/22 07/17/22 21:02 08:03 08:41 Creatinine 0.72 Estim Creat Clear Calc 83.8 Estimated GFR > 60 POC Glucose 141 H 178 H Medications Medications Current Medications Acetaminophen (Acetaminophen 325 Mg Tablet) 650 mg PO Q6H PRN PRN Reason: Headache/Pain Mild Scale (1-3) Last Admin: 07/17/22 05:03 Dose: 650 mg Al Hydroxide/Mg Hydroxide (Magnesium Hydrox/Alum Hydrox 30 Ml Oral.Susp) 30 ml PO Q6H PRN PRN Reason: Heartburn/Nausea Amoxicillin/Clavulanate Potassium (Amoxicillin/Potassium Clav 500 Mg Tablet) 500 mg PO Q12H [facility] Last Admin: 07/17/22 08:21 Dose: 500 mg Atorvastatin Calcium (Atorvastatin Calcium 20 Mg Tablet) 20 mg PO BEDTIME [facility] Last Admin: 07/16/22 21:37 Dose: 20 mg Chlorpromazine HCl (Chlorpromazine Hcl 25 Mg Tablet) 50 mg PO BEDTIME [facility] Last Admin: 07/16/22 22:08 Dose: 50 mg Clotrimazole (Clotrimazole 1 % Cream 15 Gm Tube) 1 appl TOPICAL BID [facility] Last Admin: 07/17/22 09:05 Dose: Not Given Cyanocobalamin (Cyanocobalamin (Vitamin B-12) 1,000 Mcg Tablet) 1,000 mcg PO DAILY [facility] Last Admin: 07/17/22 08:21 Dose: 1,000 mcg Glipizide (Glipizide Xl 2.5 Mg Tab.Er.24) 2.5 mg PO DAILY [facility] Last Admin: 07/17/22 08:21 Dose: 2.5 mg Hydroxyzine HCl (Hydroxyzine Hcl 25 Mg Tablet) 25 mg PO Q6H PRN PRN Reason: Anxiety Last Admin: 07/10/22 13:39 Dose: 25 mg Lamotrigine (Lamotrigine 100 Mg Tablet) 250 mg PO DAILY [facility] Last Admin: 07/17/22 08:21 Dose: 250 mg Lorazepam (Lorazepam 1 Mg Tablet) 1 mg PO TID PRN PRN Reason: Anxiety Last Admin: 07/17/22 05:03 Dose: 1 mg Losartan Potassium (Losartan Potassium 25 Mg Tablet) 25 mg PO DAILY [facility]; Protocol Last Admin: 07/17/22 08:21 Dose: 25 mg Magnesium Hydroxide (Milk Of Magnesia 30 Ml Oral.Susp) 30 ml PO DAILY PRN PRN Reason: Constipation Metformin HCl (Metformin Hcl 1,000 Mg Tablet) 1,000 mg PO BIDWM [facility] Last Admin: 07/17/22 08:21 Dose: 1,000 mg Nicotine Polacrilex (Nicotine Polacrilex 2 Mg Gum) 2 mg BUCCAL Q2H PRN PRN Reason: Nicotine Cravings Non-Formulary Medication (Lamotrigine) 1 tab PO DAILY [facility] Senna (Sennosides 8.6 Mg Tablet) 17.2 mg PO BEDTIME [facility] Last Admin: 07/16/22 21:37 Dose: 17.2 mg Sitagliptin Phosphate (Sitagliptin Phosphate 100 Mg Tablet) 100 mg PO DAILY [facility] Last Admin: 07/17/22 08:20 Dose: 100 mg Topiramate (Topiramate 25 Mg Tablet) 100 mg PO BEDTIME [facility] Last Admin: 07/16/22 21:37 Dose: 100 mg Trazodone HCl (Trazodone Hcl 100 Mg Tablet) 100 mg PO BEDTIME [facility] Last Admin: 07/16/22 22:08 Dose: 100 mg Trazodone HCl (Trazodone Hcl 50 Mg Tablet) 50 mg PO BEDTIME PRN PRN Reason: Insomnia Last Admin: 07/16/22 22:13 Dose: 50 mg Ziprasidone (Ziprasidone 60 Mg Capsule) 60 mg PO BID@0900,1800 [facility] Last Admin: 07/17/22 09:31 Dose: 60 mg Allergies Allergies Allergy/AdvReac Type Severity Reaction Status Date / Time latex Allergy Rash Verified 07/08/22 16:13 lithium Allergy Unknown Verified 07/08/22 16:13 Assessment & Plan Assessment & Plan (1) Schizoaffective disorder, bipolar type: Status: Acute Code(s): F25.0 - Schizoaffective disorder, bipolar type Plan Abimbola is a 62 y.o. female who carries a dx of schizoaffective disorder, bipolar type. She presented to [facility] on 07/08/2022 due to erratic behavior, angry outbursts, and ?not feeling right,? does not feel her meds are helping. Pt was recently admitted to [facility]/ respite on 07/03/2022 due to similar presentation, i.e. not feeling like herself, however no med changes were made there.? Plan: Will re-start topamax at 50 mg QHS, as pt reports past benefit on this med for sleep and asks to re-start it, additionally it may aid in wt loss (questionable evidence base). Pt says she does not like olanzapine because it is wt gaining and would like to be tried a different antipsychotic mood stabilizer.? 07/10: Increase topamax to 100 mg QHS, start thorazine 50 mg QHS for sleep. Pt is insistent on discontinuing olanzapine, willing to cross taper with another antipsychotic for mood stability, agitation. Will trial geodon, start 40 mg BID and decrease olanzapine to 7.5 mg QHS. 07/11: No medication changes, pt is sleeping better. Continue plan to taper off olanzapine and titrate up on ziprasidone as needed. Q15 min safety checks, CV Monitor response to medications. Monitor for safety in the milieu. Discharge on stabilization. Patient seen. Chart reviewed. Discussed with team. Obtain collateral contact info?as needed 07/13/2022: Will lower olanzapine from 5 mg to 2.5 mg as ongoing taper and switch to ziprasidone. 07/14: no change 07/15 start aumentin 500mg po BID x 7 days for ear pain. continue all other meds as prescribed. 07/16- increase geodon to 60mg po BID. 07/17 continue Geodone 60mg po BID, adjust thorazine as pt continues to have difficulty sleeping to 100mg po qhs. I spent minutes with the patient and/or on the patient floor today, greater than?50% of which was spent counseling/coordinating care. Reason for contiued inpatient stay Substantial Risk for: inability to function
[2022-07-17] MEDS: Trolamine Salicylate 10 % Cream 85 GM TUBE 1 APPL TOPICAL ×2 (16:47→21:02)
[2022-07-17 18:00] VITALS: BP 140/70; PULSE 104; RESP 16; TEMP 36.4; O2SAT 100
[2022-07-17 20:23] LABS: Glucose, Whole Blood 114 mg/dL (60-115)
[2022-07-17] MEDS: Topiramate 25 MG TABLET 100 MG PO (20:27)
[2022-07-17] MEDS: Atorvastatin Calcium 20 MG TABLET PO (20:28)
[2022-07-17] MEDS: chlorproMAZINE HCl 100 MG TABLET PO (20:28)
[2022-07-17] MEDS: Sennosides 8.6 MG TABLET 17.2 MG PO (20:28)
[2022-07-17] MEDS: traZODone HCL 100 MG TABLET PO (21:02)
[2022-07-17] MEDS: Clotrimazole 1 % Cream 15 GM TUBE 1 APPL TOPICAL (21:20)
[2022-07-18] MEDS: Acetaminophen 325 MG TABLET 650 MG PO (04:16)
[2022-07-18 07:00] VITALS: BMI 30.1
[2022-07-18 08:00] VITALS: BP 120/75; PULSE 109; RESP 18; TEMP 36.3; O2SAT 98
[2022-07-18 08:04] LABS: Glucose, Whole Blood 124 mg/dL (60-115)
[2022-07-18] MEDS: Cyanocobalamin (Vitamin B-12) 1,000 MCG TABLET 1000 MCG PO (08:44)
[2022-07-18] MEDS: SITagliptin Phosphate 100 MG TABLET PO (08:44)
[2022-07-18] MEDS: Losartan Potassium 25 MG TABLET PO (08:44)
[2022-07-18] MEDS: Amoxicillin/Potassium Clav 500 MG TABLET PO ×2 (08:44→20:40)
[2022-07-18] MEDS: lamoTRIgine 100 MG TABLET 250 MG PO (08:44)
[2022-07-18] MEDS: glipiZIDE XL 2.5 MG TAB.ER.24 PO (08:44)
[2022-07-18] MEDS: metFORMIN HCl 1,000 MG TABLET 1000 MG PO ×2 (08:44→17:08)
[2022-07-18] MEDS: Ziprasidone 60 MG CAPSULE PO ×2 (08:45→17:08)
--- NOTE | 2022-07-18 12:42 | HO.PSYCHPN ---
Subjective Subjective Date of Service: 07/18/22 Reason For Visit: [place] Subjective Notes: Conditional Voluntary Interim History: Pt expansive mood, laughing inappropriately. She reports knee pain. She report sleep is good, but staff reports she woke up soon after midnight, singing and dancing. She continues to be intrusive, argumentative with peers. She denies SI/HI. She appears to be responding to internal stimuli. In agreement to be here in unit and adjust medications. Medication Compliance: Yes Review of Systems Review of Systems Unremarkable Yes all other systems are reviewed and are negative Mental Status Exam Mental Status Exam Narrative: Appearance: casually groomed, fair hygiene in NAD Behavior:cooperative psychomotor:no agitation or retardation noted Speech:clear, normal rate/rhythm/volume, spontaneous Thought process:linear Thought content:feeling ignored, ear pain. Mood: ignored Affect: expansive, labile SI:none HI:none VH/AH:talking to someone who was not there Delusions:paranoia Insight/judgment:fair x 2. Memory/cog: alert, oriented x 3. not formally tested. Diagnostics Vital Signs (24Hr): Vital Signs - 24 hr 07/18/22 18:00 07/19/22 09:00 Temperature 98.0 F 98.2 F Pulse Rate 113 H 82 Respiratory Rate 18 16 Blood Pressure 128/65 128/78 Pulse Oximetry 100 98 Oxygen Delivery Method Room Air Room Air BMI result Body Mass Index 30.1 Labs Results: 07/08/22 16:20 07/17/22 08:41 Labs: Laboratory Results - last 48 hr 07/17/22 07/18/22 07/18/22 20:19 07:53 17:07 POC Glucose 114 124 H 93 07/19/22 08:37 POC Glucose 126 H Medications Medications Current Medications Acetaminophen (Acetaminophen 325 Mg Tablet) 650 mg PO Q6H PRN PRN Reason: Headache/Pain Mild Scale (1-3) Last Admin: 07/19/22 11:47 Dose: 650 mg Al Hydroxide/Mg Hydroxide (Magnesium Hydrox/Alum Hydrox 30 Ml Oral.Susp) 30 ml PO Q6H PRN PRN Reason: Heartburn/Nausea Amoxicillin/Clavulanate Potassium (Amoxicillin/Potassium Clav 500 Mg Tablet) 500 mg PO Q12H JULIAN Last Admin: 07/19/22 09:01 Dose: 500 mg Atorvastatin Calcium (Atorvastatin Calcium 20 Mg Tablet) 20 mg PO BEDTIME JULIAN Last Admin: 07/18/22 20:40 Dose: 20 mg Clonazepam (Clonazepam 0.5 Mg Tablet) 0.5 mg PO BID [facility] Last Admin: 07/19/22 11:43 Dose: 0.5 mg Clotrimazole (Clotrimazole 1 % Cream 15 Gm Tube) 1 appl TOPICAL BID [facility] Last Admin: 07/19/22 09:42 Dose: Not Given Cyanocobalamin (Cyanocobalamin (Vitamin B-12) 1,000 Mcg Tablet) 1,000 mcg PO DAILY [facility] Last Admin: 07/19/22 09:01 Dose: 1,000 mcg Glipizide (Glipizide Xl 2.5 Mg Tab.Er.24) 2.5 mg PO DAILY [facility] Last Admin: 07/19/22 09:00 Dose: 2.5 mg Hydroxyzine HCl (Hydroxyzine Hcl 50 Mg Tablet) 50 mg PO Q6H PRN PRN Reason: Anxiety Ibuprofen (Ibuprofen 400 Mg Tablet) 400 mg PO Q6H PRN PRN Reason: Pain, Moderate (Pain Scale 4-6 Lamotrigine (Lamotrigine 100 Mg Tablet) 250 mg PO DAILY [facility] Last Admin: 07/19/22 08:59 Dose: 250 mg Losartan Potassium (Losartan Potassium 25 Mg Tablet) 25 mg PO DAILY [facility]; Protocol Last Admin: 07/19/22 09:02 Dose: 25 mg Magnesium Hydroxide (Milk Of Magnesia 30 Ml Oral.Susp) 30 ml PO DAILY PRN PRN Reason: Constipation Metformin HCl (Metformin Hcl 1,000 Mg Tablet) 1,000 mg PO BIDWM [facility] Last Admin: 07/19/22 09:01 Dose: 1,000 mg Nicotine Polacrilex (Nicotine Polacrilex 2 Mg Gum) 2 mg BUCCAL Q2H PRN PRN Reason: Nicotine Cravings Non-Formulary Medication (Lamotrigine) 1 tab PO DAILY [facility] Senna (Sennosides 8.6 Mg Tablet) 17.2 mg PO BEDTIME [facility] Last Admin: 07/18/22 20:40 Dose: 17.2 mg Sitagliptin Phosphate (Sitagliptin Phosphate 100 Mg Tablet) 100 mg PO DAILY [facility] Last Admin: 07/19/22 09:01 Dose: 100 mg Topiramate (Topiramate 25 Mg Tablet) 100 mg PO BEDTIME [facility] Last Admin: 07/18/22 20:40 Dose: 100 mg Trazodone HCl (Trazodone Hcl 100 Mg Tablet) 100 mg PO BEDTIME [facility] Last Admin: 07/18/22 20:40 Dose: 100 mg Trazodone HCl (Trazodone Hcl 50 Mg Tablet) 50 mg PO BEDTIME PRN PRN Reason: Insomnia Last Admin: 07/16/22 22:13 Dose: 50 mg Trolamine Salicylate (Trolamine Salicylate 10 % Cream 85 Gm Tube) 1 appl TOPICAL QID PRN; Protocol PRN Reason: knee pain Ziprasidone (Ziprasidone 60 Mg Capsule) 60 mg PO BID@0900,1800 [facility] Last Admin: 07/19/22 09:02 Dose: 60 mg Allergies Allergies Allergy/AdvReac Type Severity Reaction Status Date / Time latex Allergy Rash Verified 07/08/22 16:13 lithium Allergy Unknown Verified 07/08/22 16:13 Assessment & Plan Assessment & Plan (1) Schizoaffective disorder, bipolar type: Status: Acute Code(s): F25.0 - Schizoaffective disorder, bipolar type Plan Abimbola is a 62 y.o. female who carries a dx of schizoaffective disorder, bipolar type. She presented to [facility] ED on 07/08/2022 due to erratic behavior, angry outbursts, and ?not feeling right,? does not feel her meds are helping. Pt was recently admitted to [facility]/ respite on 07/03/2022 due to similar presentation, i.e. not feeling like herself, however no med changes were made there.? Plan: Will re-start topamax at 50 mg QHS, as pt reports past benefit on this med for sleep and asks to re-start it, additionally it may aid in wt loss (questionable evidence base). Pt says she does not like olanzapine because it is wt gaining and would like to be tried a different antipsychotic mood stabilizer.? 07/10: Increase topamax to 100 mg QHS, start thorazine 50 mg QHS for sleep. Pt is insistent on discontinuing olanzapine, willing to cross taper with another antipsychotic for mood stability, agitation. Will trial geodon, start 40 mg BID and decrease olanzapine to 7.5 mg QHS. 07/11: No medication changes, pt is sleeping better. Continue plan to taper off olanzapine and titrate up on ziprasidone as needed. Q15 min safety checks, CV Monitor response to medications. Monitor for safety in the milieu. Discharge on stabilization. Patient seen. Chart reviewed. Discussed with team. Obtain collateral contact info?as needed 07/13/2022: Will lower olanzapine from 5 mg to 2.5 mg as ongoing taper and switch to ziprasidone. 07/14: no change 07/15 start aumentin 500mg po BID x 7 days for ear pain. continue all other meds as prescribed. 07/16- increase geodon to 60mg po BID. 07/17 continue Geodone 60mg po BID, adjust thorazine as pt continues to have difficulty sleeping to 100mg po qhs. 07/18 d/c thorazine as she reports blurry vision with it. add clonazepam scheduled, she does not want to try more effective mood stabilizer at this point. Will plan to contiune titration of geodone. I spent minutes with the patient and/or on the patient floor today, greater than?50% of which was spent counseling/coordinating care. Reason for contiued inpatient stay Substantial Risk for: inability to function
[2022-07-18 17:10] LABS: Glucose, Whole Blood 93 mg/dL (60-115)
[2022-07-18 18:00] VITALS: BP 128/65; PULSE 113; RESP 18; TEMP 36.7; O2SAT 100
[2022-07-18] MEDS: chlorproMAZINE HCl 100 MG TABLET PO (20:40)
[2022-07-18] MEDS: traZODone HCL 100 MG TABLET PO (20:40)
[2022-07-18] MEDS: Atorvastatin Calcium 20 MG TABLET PO (20:40)
[2022-07-18] MEDS: Sennosides 8.6 MG TABLET 17.2 MG PO (20:40)
[2022-07-18] MEDS: Topiramate 25 MG TABLET 100 MG PO (20:40)
[2022-07-18] MEDS: LORazepam 1 MG TABLET PO (22:36)
[2022-07-18] MEDS: hydrOXYzine HCL 25 MG TABLET PO (22:36)
[2022-07-19] MEDS: Acetaminophen 325 MG TABLET 650 MG PO ×2 (05:29→11:47)
[2022-07-19] MEDS: Trolamine Salicylate 10 % Cream 85 GM TUBE 1 APPL TOPICAL ×2 (05:33→15:40)
[2022-07-19 08:43] LABS: Glucose, Whole Blood 126 mg/dL (60-115)
[2022-07-19] MEDS: lamoTRIgine 100 MG TABLET 250 MG PO (08:59)
[2022-07-19 09:00] VITALS: BP 128/78; PULSE 82; RESP 16; TEMP 36.8; O2SAT 98
[2022-07-19] MEDS: glipiZIDE XL 2.5 MG TAB.ER.24 PO (09:00)
[2022-07-19] MEDS: Cyanocobalamin (Vitamin B-12) 1,000 MCG TABLET 1000 MCG PO (09:01)
[2022-07-19] MEDS: Amoxicillin/Potassium Clav 500 MG TABLET PO ×2 (09:01→21:44)
[2022-07-19] MEDS: SITagliptin Phosphate 100 MG TABLET PO (09:01)
[2022-07-19] MEDS: metFORMIN HCl 1,000 MG TABLET 1000 MG PO ×2 (09:01→18:25)
[2022-07-19] MEDS: Losartan Potassium 25 MG TABLET PO (09:02)
[2022-07-19] MEDS: Ziprasidone 60 MG CAPSULE PO (09:02)
[2022-07-19] MEDS: clonazePAM 0.5 MG TABLET PO ×2 (11:43→22:29)
--- NOTE | 2022-07-19 12:00 | HO.PSYCHPN ---
Subjective Subjective Date of Service: 07/19/22 Reason For Visit: [place] Subjective Notes: Conditional Voluntary Interim History: Pt did sleep better last night per staff. She presents as less hyperverbal but still at times laughing to herself. She denies SI/HI. She denies AH but appears internally preoccupied. Pt has been visible on the unit, at times argumentative with peers. No aggression towards self or others. Medication Compliance: Yes Side effects from medications: No Review of Systems Review of Systems Unremarkable Yes all other systems are reviewed and are negative Mental Status Exam Mental Status Exam Narrative: Appearance: casually groomed, fair hygiene in NAD Behavior:cooperative psychomotor:no agitation or retardation noted Speech:clear, normal rate/rhythm/volume, spontaneous Thought process:linear Thought content:feeling ignored, ear pain. Mood: ignored Affect: expansive, labile SI:none HI:none VH/AH:talking to someone who was not there Delusions:paranoia Insight/judgment:fair x 2. Memory/cog: alert, oriented x 3. not formally tested. Diagnostics Vital Signs (24Hr): Vital Signs - 24 hr 07/18/22 18:00 07/19/22 09:00 Temperature 98.0 F 98.2 F Pulse Rate 113 H 82 Respiratory Rate 18 16 Blood Pressure 128/65 128/78 Pulse Oximetry 100 98 Oxygen Delivery Method Room Air Room Air BMI result Body Mass Index 30.1 Labs Results: 07/08/22 16:20 07/17/22 08:41 Labs: Laboratory Results - last 48 hr 07/17/22 07/18/22 07/18/22 20:19 07:53 17:07 POC Glucose 114 124 H 93 07/19/22 08:37 POC Glucose 126 H Medications Medications Current Medications Acetaminophen (Acetaminophen 325 Mg Tablet) 650 mg PO Q6H PRN PRN Reason: Headache/Pain Mild Scale (1-3) Last Admin: 07/19/22 11:47 Dose: 650 mg Al Hydroxide/Mg Hydroxide (Magnesium Hydrox/Alum Hydrox 30 Ml Oral.Susp) 30 ml PO Q6H PRN PRN Reason: Heartburn/Nausea Amoxicillin/Clavulanate Potassium (Amoxicillin/Potassium Clav 500 Mg Tablet) 500 mg PO Q12H JULIAN Last Admin: 07/19/22 09:01 Dose: 500 mg Atorvastatin Calcium (Atorvastatin Calcium 20 Mg Tablet) 20 mg PO BEDTIME [facility]UL[facility] Last Admin: 07/18/22 20:40 Dose: 20 mg Clonazepam (Clonazepam 0.5 Mg Tablet) 0.5 mg PO BID [facility] Last Admin: 07/19/22 11:43 Dose: 0.5 mg Clotrimazole (Clotrimazole 1 % Cream 15 Gm Tube) 1 appl TOPICAL BID [facility] Last Admin: 07/19/22 09:42 Dose: Not Given Cyanocobalamin (Cyanocobalamin (Vitamin B-12) 1,000 Mcg Tablet) 1,000 mcg PO DAILY [facility] Last Admin: 07/19/22 09:01 Dose: 1,000 mcg Glipizide (Glipizide Xl 2.5 Mg Tab.Er.24) 2.5 mg PO DAILY [facility] Last Admin: 07/19/22 09:00 Dose: 2.5 mg Hydroxyzine HCl (Hydroxyzine Hcl 50 Mg Tablet) 50 mg PO Q6H PRN PRN Reason: Anxiety Ibuprofen (Ibuprofen 400 Mg Tablet) 400 mg PO Q6H PRN PRN Reason: Pain, Moderate (Pain Scale 4-6 Lamotrigine (Lamotrigine 100 Mg Tablet) 250 mg PO DAILY [facility] Last Admin: 07/19/22 08:59 Dose: 250 mg Losartan Potassium (Losartan Potassium 25 Mg Tablet) 25 mg PO DAILY [facility]; Protocol Last Admin: 07/19/22 09:02 Dose: 25 mg Magnesium Hydroxide (Milk Of Magnesia 30 Ml Oral.Susp) 30 ml PO DAILY PRN PRN Reason: Constipation Metformin HCl (Metformin Hcl 1,000 Mg Tablet) 1,000 mg PO BIDWM [facility] Last Admin: 07/19/22 09:01 Dose: 1,000 mg Nicotine Polacrilex (Nicotine Polacrilex 2 Mg Gum) 2 mg BUCCAL Q2H PRN PRN Reason: Nicotine Cravings Non-Formulary Medication (Lamotrigine) 1 tab PO DAILY [facility] Senna (Sennosides 8.6 Mg Tablet) 17.2 mg PO BEDTIME [facility] Last Admin: 07/18/22 20:40 Dose: 17.2 mg Sitagliptin Phosphate (Sitagliptin Phosphate 100 Mg Tablet) 100 mg PO DAILY [facility] Last Admin: 07/19/22 09:01 Dose: 100 mg Topiramate (Topiramate 25 Mg Tablet) 100 mg PO BEDTIME [facility] Last Admin: 07/18/22 20:40 Dose: 100 mg Trazodone HCl (Trazodone Hcl 100 Mg Tablet) 100 mg PO BEDTIME [facility] Last Admin: 07/18/22 20:40 Dose: 100 mg Trazodone HCl (Trazodone Hcl 50 Mg Tablet) 50 mg PO BEDTIME PRN PRN Reason: Insomnia Last Admin: 07/16/22 22:13 Dose: 50 mg Trolamine Salicylate (Trolamine Salicylate 10 % Cream 85 Gm Tube) 1 appl TOPICAL QID PRN; Protocol PRN Reason: knee pain Ziprasidone (Ziprasidone 60 Mg Capsule) 60 mg PO BID@0900,1800 [facility] Last Admin: 07/19/22 09:02 Dose: 60 mg Allergies Allergies Allergy/AdvReac Type Severity Reaction Status Date / Time latex Allergy Rash Verified 07/08/22 16:13 lithium Allergy Unknown Verified 07/08/22 16:13 Assessment & Plan Assessment & Plan (1) Schizoaffective disorder, bipolar type: Status: Acute Code(s): F25.0 - Schizoaffective disorder, bipolar type Plan Abimbola is a 62 y.o. female who carries a dx of schizoaffective disorder, bipolar type. She presented to [facility] on 07/08/2022 due to erratic behavior, angry outbursts, and ?not feeling right,? does not feel her meds are helping. Pt was recently admitted to [facility]/ respite on 07/03/2022 due to similar presentation, i.e. not feeling like herself, however no med changes were made there.? Plan: Will re-start topamax at 50 mg QHS, as pt reports past benefit on this med for sleep and asks to re-start it, additionally it may aid in wt loss (questionable evidence base). Pt says she does not like olanzapine because it is wt gaining and would like to be tried a different antipsychotic mood stabilizer.? 07/10: Increase topamax to 100 mg QHS, start thorazine 50 mg QHS for sleep. Pt is insistent on discontinuing olanzapine, willing to cross taper with another antipsychotic for mood stability, agitation. Will trial geodon, start 40 mg BID and decrease olanzapine to 7.5 mg QHS. 07/11: No medication changes, pt is sleeping better. Continue plan to taper off olanzapine and titrate up on ziprasidone as needed. Q15 min safety checks, CV Monitor response to medications. Monitor for safety in the milieu. Discharge on stabilization. Patient seen. Chart reviewed. Discussed with team. Obtain collateral contact info?as needed 07/13/2022: Will lower olanzapine from 5 mg to 2.5 mg as ongoing taper and switch to ziprasidone. 07/14: no change 07/15 start aumentin 500mg po BID x 7 days for ear pain. continue all other meds as prescribed. 07/16- increase geodon to 60mg po BID. 07/17 continue Geodone 60mg po BID, adjust thorazine as pt continues to have difficulty sleeping to 100mg po qhs. 07/18 d/c thorazine as she reports blurry vision with it. add clonazepam scheduled, she does not want to try more effective mood stabilizer at this point. Will plan to contiune titration of geodone. 07/19- continue current medications, may adjust geodone to 80mg po BID. I spent minutes with the patient and/or on the patient floor today, greater than?50% of which was spent counseling/coordinating care. Reason for contiued inpatient stay Substantial Risk for: inability to function
--- NOTE | 2022-07-19 12:58 | MHC.OT.ID ---
[address] [phone] F: [phone] Occupational Therapy Inpatient Daily Note Start Time: End Time: Visit Duration: Billable Time: Pain Score: Pain Location: Self-Care Feeding: Grooming: Washing: Dressing: Toileting: Functional Mobility Bed Mobility: Transfers: Ambulation: Therapeutic Activities IADL/Homecare: Balance: augmentin Therapeutic Exercise: Cognition: OT performed the MOCA to assess cognition, pt declined to take the ACLs Assessment Assessment: Pt scored a 19/30 on the [place] Cognitve Assessment (MOCA) Plan Plan of Care: D/C Today: Electronically Signed By: Deisy Loredo OTR/[place] Reviewed/agree with student documentation: Therapist:
[2022-07-19] MEDS: Ziprasidone 80 MG CAPSULE PO (18:25)
[2022-07-19 18:35] LABS: Glucose, Whole Blood 137 mg/dL (60-115)
[2022-07-19] MEDS: Sennosides 8.6 MG TABLET 17.2 MG PO (21:44)
[2022-07-19] MEDS: Topiramate 25 MG TABLET 100 MG PO (21:45)
[2022-07-19] MEDS: Atorvastatin Calcium 20 MG TABLET PO (21:49)
[2022-07-19 21:58] LABS: Glucose, Whole Blood 127 mg/dL (60-115)
[2022-07-19 22:25] VITALS: BP 124/83; PULSE 100; RESP 18; TEMP 36.7; O2SAT 100
[2022-07-19] MEDS: traZODone HCL 100 MG TABLET PO (22:29)
[2022-07-20] MEDS: traZODone HCL 50 MG TABLET PO ×2 (02:51→22:45)
[2022-07-20] MEDS: Ibuprofen 400 MG TABLET PO ×2 (02:51→21:48)
[2022-07-20 08:53] LABS: Glucose, Whole Blood 128 mg/dL (60-115)
[2022-07-20 09:00] VITALS: BP 114/76; PULSE 88; RESP 16; TEMP 36.8; O2SAT 98
[2022-07-20] MEDS: SITagliptin Phosphate 100 MG TABLET PO (09:14)
--- NOTE | 2022-07-20 09:14 | HO.PSYCHPN ---
Subjective Subjective Date of Service: 07/20/22 Reason For Visit: [place] Subjective Notes: Abraham Warning and Conditional Voluntary Interim History: I spoke with pt's team, her sleep is improved. I spoke with pt, she says she slept well. Denies SE on medications. I feel fine. Denies depression. Denies anxiety, utilizing vistaril. Per staff, at times she can be dysregulated and labile but this is less frequent. Medication Compliance: Yes Side effects from medications: No Attending Groups: Intermittent Review of Systems Acute medical concerns: No Medical Review of Systems: unchanged Mental Status Exam Mental Status Exam Narrative: Appearance: casually groomed, fair hygiene in NAD Behavior:cooperative psychomotor:no agitation or retardation noted Speech:clear, normal rate/rhythm/volume, spontaneous Thought process:linear Thought content:feeling ignored, ear pain. Mood: fine Affect: expansive, labile SI:none HI:none VH/AH:talking to someone who was not there Delusions:paranoia Insight/judgment:fair x 2. Memory/cog: alert, oriented x 3. not formally tested. Diagnostics Vital Signs (24Hr): Vital Signs - 24 hr 07/19/22 22:25 Temperature 98.0 F Pulse Rate 100 Respiratory Rate 18 Blood Pressure 124/83 Pulse Oximetry 100 Oxygen Delivery Method Room Air BMI result Body Mass Index 30.1 Labs Results: 07/08/22 16:20 07/17/22 08:41 Labs: Laboratory Results - last 48 hr 07/18/22 07/19/22 07/19/22 17:07 08:37 18:24 POC Glucose 93 126 H 137 H 07/19/22 07/20/22 21:54 08:36 POC Glucose 127 H 128 H Medications Medications Current Medications Acetaminophen (Acetaminophen 325 Mg Tablet) 650 mg PO Q6H PRN PRN Reason: Headache/Pain Mild Scale (1-3) Last Admin: 07/19/22 11:47 Dose: 650 mg Al Hydroxide/Mg Hydroxide (Magnesium Hydrox/Alum Hydrox 30 Ml Oral.Susp) 30 ml PO Q6H PRN PRN Reason: Heartburn/Nausea Amoxicillin/Clavulanate Potassium (Amoxicillin/Potassium Clav 500 Mg Tablet) 500 mg PO Q12H JULIAN Last Admin: 07/19/22 21:44 Dose: 500 mg Atorvastatin Calcium (Atorvastatin Calcium 20 Mg Tablet) 20 mg PO BEDTIME [facility] Last Admin: 07/19/22 21:49 Dose: 20 mg Clonazepam (Clonazepam 0.5 Mg Tablet) 0.5 mg PO BID [facility] Last Admin: 07/19/22 22:29 Dose: 0.5 mg Clotrimazole (Clotrimazole 1 % Cream 15 Gm Tube) 1 appl TOPICAL BID [facility] Last Admin: 07/19/22 22:31 Dose: Not Given Cyanocobalamin (Cyanocobalamin (Vitamin B-12) 1,000 Mcg Tablet) 1,000 mcg PO DAILY [facility] Last Admin: 07/19/22 09:01 Dose: 1,000 mcg Glipizide (Glipizide Xl 2.5 Mg Tab.Er.24) 2.5 mg PO DAILY [facility] Last Admin: 07/19/22 09:00 Dose: 2.5 mg Hydroxyzine HCl (Hydroxyzine Hcl 50 Mg Tablet) 50 mg PO Q6H PRN PRN Reason: Anxiety Ibuprofen (Ibuprofen 400 Mg Tablet) 400 mg PO Q6H PRN PRN Reason: Pain, Moderate (Pain Scale 4-6 Last Admin: 07/20/22 02:51 Dose: 400 mg Lamotrigine (Lamotrigine 100 Mg Tablet) 250 mg PO DAILY [facility] Last Admin: 07/19/22 08:59 Dose: 250 mg Losartan Potassium (Losartan Potassium 25 Mg Tablet) 25 mg PO DAILY [facility]; Protocol Last Admin: 07/19/22 09:02 Dose: 25 mg Magnesium Hydroxide (Milk Of Magnesia 30 Ml Oral.Susp) 30 ml PO DAILY PRN PRN Reason: Constipation Metformin HCl (Metformin Hcl 1,000 Mg Tablet) 1,000 mg PO BIDWM [facility] Last Admin: 07/19/22 18:25 Dose: 1,000 mg Nicotine Polacrilex (Nicotine Polacrilex 2 Mg Gum) 2 mg BUCCAL Q2H PRN PRN Reason: Nicotine Cravings Senna (Sennosides 8.6 Mg Tablet) 17.2 mg PO BEDTIME [facility] Last Admin: 07/19/22 21:44 Dose: 8.6 mg Sitagliptin Phosphate (Sitagliptin Phosphate 100 Mg Tablet) 100 mg PO DAILY [facility] Last Admin: 07/19/22 09:01 Dose: 100 mg Topiramate (Topiramate 25 Mg Tablet) 100 mg PO BEDTIME [facility] Last Admin: 07/19/22 21:45 Dose: 100 mg Trazodone HCl (Trazodone Hcl 100 Mg Tablet) 100 mg PO BEDTIME [facility] Last Admin: 07/19/22 22:29 Dose: 100 mg Trazodone HCl (Trazodone Hcl 50 Mg Tablet) 50 mg PO BEDTIME PRN PRN Reason: Insomnia Last Admin: 07/20/22 02:51 Dose: 50 mg Trolamine Salicylate (Trolamine Salicylate 10 % Cream 85 Gm Tube) 1 appl TOPICAL QID PRN; Protocol PRN Reason: knee pain Last Admin: 07/19/22 15:40 Dose: 1 appl Ziprasidone (Ziprasidone 80 Mg Capsule) 80 mg PO BID@0900,1800 [facility] Last Admin: 07/19/22 18:25 Dose: 80 mg Allergies Allergies Allergy/AdvReac Type Severity Reaction Status Date / Time latex Allergy Rash Verified 07/08/22 16:13 lithium Allergy Unknown Verified 07/08/22 16:13 Assessment & Plan Assessment & Plan (1) Schizoaffective disorder, bipolar type: Status: Acute Code(s): F25.0 - Schizoaffective disorder, bipolar type Plan Abimbola is a 62 y.o. female who carries a dx of schizoaffective disorder, bipolar type. She presented to [facility] on 07/08/2022 due to erratic behavior, angry outbursts, and ?not feeling right,? does not feel her meds are helping. Pt was recently admitted to [facility]/ respite on 07/03/2022 due to similar presentation, i.e. not feeling like herself, however no med changes were made there.? Plan: Will re-start topamax at 50 mg QHS, as pt reports past benefit on this med for sleep and asks to re-start it, additionally it may aid in wt loss (questionable evidence base). Pt says she does not like olanzapine because it is wt gaining and would like to be tried a different antipsychotic mood stabilizer.? 07/10: Increase topamax to 100 mg QHS, start thorazine 50 mg QHS for sleep. Pt is insistent on discontinuing olanzapine, willing to cross taper with another antipsychotic for mood stability, agitation. Will trial geodon, start 40 mg BID and decrease olanzapine to 7.5 mg QHS. 07/11: No medication changes, pt is sleeping better. Continue plan to taper off olanzapine and titrate up on ziprasidone as needed. Q15 min safety checks, CV Monitor response to medications. Monitor for safety in the milieu. Discharge on stabilization. Patient seen. Chart reviewed. Discussed with team. Obtain collateral contact info?as needed 07/13/2022: Will lower olanzapine from 5 mg to 2.5 mg as ongoing taper and switch to ziprasidone. 07/14: no change 07/15 start aumentin 500mg po BID x 7 days for ear pain. continue all other meds as prescribed. 07/16- increase geodon to 60mg po BID. 07/17 continue Geodone 60mg po BID, adjust thorazine as pt continues to have difficulty sleeping to 100mg po qhs. 07/18 d/c thorazine as she reports blurry vision with it. add clonazepam scheduled, she does not want to try more effective mood stabilizer at this point. Will plan to contiune titration of geodone. 07/19- continue current medications, may adjust geodone to 80mg po BID. 07/20- continue geodon on 80 mg BID for mood lability I spent minutes with the patient and/or on the patient floor today, greater than?50% of which was spent counseling/coordinating care. Patient educated on: medication risk/benefits and therapeutic strategies Reason for contiued inpatient stay Substantial Risk for: rapid decompensation and med/psych decompensation
[2022-07-20] MEDS: Amoxicillin/Potassium Clav 500 MG TABLET PO ×2 (09:15→21:46)
[2022-07-20] MEDS: Ziprasidone 80 MG CAPSULE PO ×2 (09:15→18:06)
[2022-07-20] MEDS: metFORMIN HCl 1,000 MG TABLET 1000 MG PO ×2 (09:15→18:05)
[2022-07-20] MEDS: Losartan Potassium 25 MG TABLET PO (09:15)
[2022-07-20] MEDS: Cyanocobalamin (Vitamin B-12) 1,000 MCG TABLET 1000 MCG PO (09:15)
[2022-07-20] MEDS: lamoTRIgine 100 MG TABLET 250 MG PO (09:15)
[2022-07-20] MEDS: glipiZIDE XL 2.5 MG TAB.ER.24 PO (09:16)
[2022-07-20] MEDS: clonazePAM 0.5 MG TABLET PO ×2 (09:16→22:45)
[2022-07-20] MEDS: Acetaminophen 325 MG TABLET 650 MG PO (11:40)
[2022-07-20 17:54] LABS: Glucose, Whole Blood 137 mg/dL (60-115)
[2022-07-20] MEDS: Topiramate 25 MG TABLET 100 MG PO (21:45)
[2022-07-20] MEDS: Atorvastatin Calcium 20 MG TABLET PO (21:46)
[2022-07-20] MEDS: Sennosides 8.6 MG TABLET 17.2 MG PO (21:46)
[2022-07-20 21:48] VITALS: BP 136/67; PULSE 90; RESP 18; TEMP 36.7; O2SAT 99
[2022-07-20 21:49] LABS: Glucose, Whole Blood 73 mg/dL (60-115)
[2022-07-20] MEDS: traZODone HCL 100 MG TABLET PO (22:45)
[2022-07-21] MEDS: Ibuprofen 400 MG TABLET PO (03:53)
[2022-07-21] MEDS: hydrOXYzine HCL 50 MG TABLET PO (03:54)
[2022-07-21 07:26] LABS: Glucose, Whole Blood 146 mg/dL (60-115)
[2022-07-21 08:30] VITALS: BP 97/56; PULSE 77; RESP 20; TEMP 36.4
[2022-07-21] MEDS: Amoxicillin/Potassium Clav 500 MG TABLET PO ×2 (09:19→21:44)
[2022-07-21] MEDS: Cyanocobalamin (Vitamin B-12) 1,000 MCG TABLET 1000 MCG PO (09:19)
[2022-07-21] MEDS: SITagliptin Phosphate 100 MG TABLET PO (09:19)
[2022-07-21] MEDS: Losartan Potassium 25 MG TABLET PO (09:19)
[2022-07-21] MEDS: lamoTRIgine 100 MG TABLET 250 MG PO (09:20)
[2022-07-21] MEDS: clonazePAM 0.5 MG TABLET PO ×2 (09:20→22:36)
[2022-07-21] MEDS: glipiZIDE XL 2.5 MG TAB.ER.24 PO (09:20)
[2022-07-21] MEDS: Ziprasidone 80 MG CAPSULE PO ×2 (09:20→18:08)
[2022-07-21] MEDS: metFORMIN HCl 1,000 MG TABLET 1000 MG PO ×2 (09:21→18:08)
--- NOTE | 2022-07-21 15:00 | P.PNPSI_ITS ---
Subjective Subjective Date of Service: 07/21/22 Reason For Visit: [place] Subjective Notes: Abraham Warning and Conditional Voluntary Interim History: I spoke with team, pt appears to be more stable on increased geodon, sleep improved. I spoke with pt, says her sleep is sometimes disrupted but says this is because I have to pee. No questions or concerns, has better insight, as she noted that due to the acuity of the milieu, at least when I go out [i.e. leaves the hospital] and there's excitment, i'll be able to handle it as she has on the unit. Mental Status Exam Mental Status Exam Narrative: Appearance: casually groomed, fair hygiene in NAD Behavior:cooperative psychomotor:no agitation or retardation noted Speech:clear, normal rate/rhythm/volume, spontaneous Thought process:linear Thought content:feeling ignored, ear pain. Mood: fine Affect: expansive, labile SI:none HI:none VH/AH:talking to someone who was not there Delusions:paranoia Insight/judgment:fair x 2. Memory/cog: alert, oriented x 3. not formally tested. Diagnostics Vital Signs (24Hr): Vital Signs - 24 hr 07/20/22 21:48 07/21/22 08:30 Temperature 98.0 F 97.6 F Pulse Rate 90 77 Respiratory Rate 18 20 Blood Pressure 136/67 97/56 L Pulse Oximetry 99 Oxygen Delivery Method Room Air Room Air BMI result Body Mass Index 30.1 Labs Results: 07/08/22 16:20 07/17/22 08:41 Labs: Laboratory Results - last 48 hr 07/19/22 07/19/22 07/20/22 18:24 21:54 08:36 POC Glucose 137 H 127 H 128 H 07/20/22 07/20/22 07/21/22 17:50 21:38 07:22 POC Glucose 137 H 73 146 H Medications Medications Current Medications Acetaminophen (Acetaminophen 325 Mg Tablet) 650 mg PO Q6H PRN PRN Reason: Headache/Pain Mild Scale (1-3) Last Admin: 07/20/22 11:40 Dose: 650 mg Al Hydroxide/Mg Hydroxide (Magnesium Hydrox/Alum Hydrox 30 Ml Oral.Susp) 30 ml PO Q6H PRN PRN Reason: Heartburn/Nausea Amoxicillin/Clavulanate Potassium (Amoxicillin/Potassium Clav 500 Mg Tablet) 500 mg PO Q12H JULIAN Last Admin: 07/21/22 09:19 Dose: 500 mg Atorvastatin Calcium (Atorvastatin Calcium 20 Mg Tablet) 20 mg PO BEDTIME [facility] Last Admin: 07/20/22 21:46 Dose: 20 mg Clonazepam (Clonazepam 0.5 Mg Tablet) 0.5 mg PO BID [facility] Last Admin: 07/21/22 09:20 Dose: 0.5 mg Clotrimazole (Clotrimazole 1 % Cream 15 Gm Tube) 1 appl TOPICAL BID [facility] Last Admin: 07/21/22 09:57 Dose: Not Given Cyanocobalamin (Cyanocobalamin (Vitamin B-12) 1,000 Mcg Tablet) 1,000 mcg PO DAILY [facility] Last Admin: 07/21/22 09:19 Dose: 1,000 mcg Glipizide (Glipizide Xl 2.5 Mg Tab.Er.24) 2.5 mg PO DAILY [facility] Last Admin: 07/21/22 09:20 Dose: 2.5 mg Hydroxyzine HCl (Hydroxyzine Hcl 50 Mg Tablet) 50 mg PO Q6H PRN PRN Reason: Anxiety Last Admin: 07/21/22 03:54 Dose: 50 mg Ibuprofen (Ibuprofen 400 Mg Tablet) 400 mg PO Q6H PRN PRN Reason: Pain, Moderate (Pain Scale 4-6 Last Admin: 07/21/22 03:53 Dose: 400 mg Lamotrigine (Lamotrigine 100 Mg Tablet) 250 mg PO DAILY [facility] Last Admin: 07/21/22 09:20 Dose: 250 mg Losartan Potassium (Losartan Potassium 25 Mg Tablet) 25 mg PO DAILY [facility]; Protocol Last Admin: 07/21/22 09:19 Dose: 25 mg Magnesium Hydroxide (Milk Of Magnesia 30 Ml Oral.Susp) 30 ml PO DAILY PRN PRN Reason: Constipation Metformin HCl (Metformin Hcl 1,000 Mg Tablet) 1,000 mg PO BIDWM [facility] Last Admin: 07/21/22 09:21 Dose: 1,000 mg Nicotine Polacrilex (Nicotine Polacrilex 2 Mg Gum) 2 mg BUCCAL Q2H PRN PRN Reason: Nicotine Cravings Senna (Sennosides 8.6 Mg Tablet) 17.2 mg PO BEDTIME [facility] Last Admin: 07/20/22 21:46 Dose: 8.6 mg Sitagliptin Phosphate (Sitagliptin Phosphate 100 Mg Tablet) 100 mg PO DAILY [facility] Last Admin: 07/21/22 09:19 Dose: 100 mg Topiramate (Topiramate 25 Mg Tablet) 100 mg PO BEDTIME [facility] Last Admin: 07/20/22 21:45 Dose: 100 mg Trazodone HCl (Trazodone Hcl 100 Mg Tablet) 100 mg PO BEDTIME [facility] Last Admin: 07/20/22 22:45 Dose: 100 mg Trazodone HCl (Trazodone Hcl 50 Mg Tablet) 50 mg PO BEDTIME PRN PRN Reason: Insomnia Last Admin: 07/20/22 22:45 Dose: 50 mg Trolamine Salicylate (Trolamine Salicylate 10 % Cream 85 Gm Tube) 1 appl TOPICAL QID PRN; Protocol PRN Reason: knee pain Last Admin: 07/19/22 15:40 Dose: 1 appl Ziprasidone (Ziprasidone 80 Mg Capsule) 80 mg PO BID@0900,1800 [facility] Last Admin: 07/21/22 09:20 Dose: 80 mg Allergies Allergies Allergy/AdvReac Type Severity Reaction Status Date / Time latex Allergy Rash Verified 07/08/22 16:13 lithium Allergy Unknown Verified 07/08/22 16:13 Assessment & Plan Assessment & Plan (1) Schizoaffective disorder, bipolar type: Status: Acute Code(s): F25.0 - Schizoaffective disorder, bipolar type Plan Abimbola is a 62 y.o. female who carries a dx of schizoaffective disorder, bipolar type. She presented to [facility] on 07/08/2022 due to erratic behavior, angry outbursts, and ?not feeling right,? does not feel her meds are helping. Pt was recently admitted to [facility]/ respite on 07/03/2022 due to similar presentation, i.e. not feeling like herself, however no med changes were made there.? Plan: Will re-start topamax at 50 mg QHS, as pt reports past benefit on this med for sleep and asks to re-start it, additionally it may aid in wt loss (questionable evidence base). Pt says she does not like olanzapine because it is wt gaining and would like to be tried a different antipsychotic mood stabilizer.? 07/10: Increase topamax to 100 mg QHS, start thorazine 50 mg QHS for sleep. Pt is insistent on discontinuing olanzapine, willing to cross taper with another antipsychotic for mood stability, agitation. Will trial geodon, start 40 mg BID and decrease olanzapine to 7.5 mg QHS. 07/11: No medication changes, pt is sleeping better. Continue plan to taper off olanzapine and titrate up on ziprasidone as needed. Q15 min safety checks, CV Monitor response to medications. Monitor for safety in the milieu. Discharge on stabilization. Patient seen. Chart reviewed. Discussed with team. Obtain collateral contact info?as needed 07/13/2022: Will lower olanzapine from 5 mg to 2.5 mg as ongoing taper and switch to ziprasidone. 07/14: no change 07/15 start aumentin 500mg po BID x 7 days for ear pain. continue all other meds as prescribed. 07/16- increase geodon to 60mg po BID. 07/17 continue Geodone 60mg po BID, adjust thorazine as pt continues to have difficulty sleeping to 100mg po qhs. 07/18 d/c thorazine as she reports blurry vision with it. add clonazepam scheduled, she does not want to try more effective mood stabilizer at this point. Will plan to contiune titration of geodone. 07/19- continue current medications, may adjust geodone to 80mg po BID. 07/20- continue geodon on 80 mg BID for mood lability 07/21- continue meds unchanged I spent minutes with the patient and/or on the patient floor today, greater than?50% of which was spent counseling/coordinating care. Patient educated on: diagnosis, medication risk/benefits and therapeutic strategies Reason for contiued inpatient stay Substantial Risk for: rapid decompensation and med/psych decompensation
[2022-07-21 17:58] LABS: Glucose, Whole Blood 82 mg/dL (60-115)
[2022-07-21 20:35] VITALS: BP 138/77; PULSE 101; RESP 18; TEMP 36.6; O2SAT 98
[2022-07-21] MEDS: Atorvastatin Calcium 20 MG TABLET PO (21:44)
[2022-07-21] MEDS: Topiramate 25 MG TABLET 100 MG PO (21:44)
[2022-07-21] MEDS: Sennosides 8.6 MG TABLET 17.2 MG PO (21:44)
[2022-07-21] MEDS: traZODone HCL 100 MG TABLET PO (22:37)
[2022-07-21] MEDS: traZODone HCL 50 MG TABLET PO (22:38)
[2022-07-22] MEDS: Acetaminophen 325 MG TABLET 650 MG PO ×2 (02:57→17:35)
[2022-07-22] MEDS: hydrOXYzine HCL 50 MG TABLET PO (02:57)
[2022-07-22 08:40] LABS: Glucose, Whole Blood 130 mg/dL (60-115)
[2022-07-22 09:22] VITALS: BP 119/92; PULSE 92; RESP 17; TEMP 36.6; O2SAT 100
[2022-07-22] MEDS: SITagliptin Phosphate 100 MG TABLET PO (09:24)
[2022-07-22] MEDS: Losartan Potassium 25 MG TABLET PO (09:24)
[2022-07-22] MEDS: Amoxicillin/Potassium Clav 500 MG TABLET PO ×2 (09:24→21:34)
[2022-07-22] MEDS: metFORMIN HCl 1,000 MG TABLET 1000 MG PO ×2 (09:24→17:31)
[2022-07-22] MEDS: clonazePAM 0.5 MG TABLET PO ×2 (09:25→22:38)
[2022-07-22] MEDS: Cyanocobalamin (Vitamin B-12) 1,000 MCG TABLET 1000 MCG PO (09:25)
[2022-07-22] MEDS: lamoTRIgine 100 MG TABLET 250 MG PO (09:26)
[2022-07-22] MEDS: Ziprasidone 80 MG CAPSULE PO ×2 (09:27→17:31)
[2022-07-22] MEDS: glipiZIDE XL 2.5 MG TAB.ER.24 PO (09:27)
[2022-07-22] MEDS: Clotrimazole 1 % Cream 15 GM TUBE 1 APPL TOPICAL ×2 (10:31→22:41)
--- NOTE | 2022-07-22 15:24 | HO.PSYCHPN ---
Subjective Subjective Date of Service: 07/22/22 Reason For Visit: [place] Subjective Notes: Conditional Voluntary Interim History: Pt reports she feels good. She reports sleep changes every night. She is less hyperverbal, less pressured, less laughing to her self. She is taking medications as prescribed. No behavioral concerns. Less paranoid about staff. Medication Compliance: Yes Side effects from medications: No Review of Systems Review of Systems Unremarkable Yes all other systems are reviewed and are negative Mental Status Exam Mental Status Exam Narrative: Appearance: casually groomed, fair hygiene in NAD Behavior:cooperative psychomotor:no agitation or retardation noted Speech:clear, normal rate/rhythm/volume, spontaneous Thought process:linear Thought content:feeling ignored, ear pain. Mood: fine Affect: expansive, labile SI:none HI:none VH/AH:talking to someone who was not there Delusions:paranoia Insight/judgment:fair x 2. Memory/cog: alert, oriented x 3. not formally tested. Diagnostics Vital Signs (24Hr): Vital Signs - 24 hr 07/21/22 20:35 07/22/22 09:22 Temperature 97.9 F 97.8 F Pulse Rate 101 H 92 Respiratory Rate 18 17 Blood Pressure 138/77 119/92 H Pulse Oximetry 98 100 Oxygen Delivery Method Room Air Room Air BMI result Body Mass Index 30.1 Labs Results: 07/08/22 16:20 07/17/22 08:41 Labs: Laboratory Results - last 48 hr 07/20/22 07/20/22 07/21/22 17:50 21:38 07:22 POC Glucose 137 H 73 146 H 07/21/22 07/22/22 17:54 08:33 POC Glucose 82 130 H Medications Medications Current Medications Acetaminophen (Acetaminophen 325 Mg Tablet) 650 mg PO Q6H PRN PRN Reason: Headache/Pain Mild Scale (1-3) Last Admin: 07/22/22 02:57 Dose: 650 mg Al Hydroxide/Mg Hydroxide (Magnesium Hydrox/Alum Hydrox 30 Ml Oral.Susp) 30 ml PO Q6H PRN PRN Reason: Heartburn/Nausea Amoxicillin/Clavulanate Potassium (Amoxicillin/Potassium Clav 500 Mg Tablet) 500 mg PO Q12H JULIAN Last Admin: 07/22/22 09:24 Dose: 500 mg Atorvastatin Calcium (Atorvastatin Calcium 20 Mg Tablet) 20 mg PO BEDTIME [facility] Last Admin: 07/21/22 21:44 Dose: 20 mg Clonazepam (Clonazepam 0.5 Mg Tablet) 0.5 mg PO BID [facility] Last Admin: 07/22/22 09:25 Dose: 0.5 mg Clotrimazole (Clotrimazole 1 % Cream 15 Gm Tube) 1 appl TOPICAL BID [facility] Last Admin: 07/22/22 10:31 Dose: 1 appl Cyanocobalamin (Cyanocobalamin (Vitamin B-12) 1,000 Mcg Tablet) 1,000 mcg PO DAILY [facility] Last Admin: 07/22/22 09:25 Dose: 1,000 mcg Glipizide (Glipizide Xl 2.5 Mg Tab.Er.24) 2.5 mg PO DAILY [facility] Last Admin: 07/22/22 09:27 Dose: 2.5 mg Hydroxyzine HCl (Hydroxyzine Hcl 50 Mg Tablet) 50 mg PO Q6H PRN PRN Reason: Anxiety Last Admin: 07/22/22 02:57 Dose: 50 mg Ibuprofen (Ibuprofen 400 Mg Tablet) 400 mg PO Q6H PRN PRN Reason: Pain, Moderate (Pain Scale 4-6 Last Admin: 07/21/22 03:53 Dose: 400 mg Lamotrigine (Lamotrigine 100 Mg Tablet) 250 mg PO DAILY [facility] Last Admin: 07/22/22 09:26 Dose: 250 mg Losartan Potassium (Losartan Potassium 25 Mg Tablet) 25 mg PO DAILY [facility]; Protocol Last Admin: 07/22/22 09:24 Dose: 25 mg Magnesium Hydroxide (Milk Of Magnesia 30 Ml Oral.Susp) 30 ml PO DAILY PRN PRN Reason: Constipation Metformin HCl (Metformin Hcl 1,000 Mg Tablet) 1,000 mg PO BIDWM [facility] Last Admin: 07/22/22 09:24 Dose: 1,000 mg Nicotine Polacrilex (Nicotine Polacrilex 2 Mg Gum) 2 mg BUCCAL Q2H PRN PRN Reason: Nicotine Cravings Senna (Sennosides 8.6 Mg Tablet) 17.2 mg PO BEDTIME [facility] Last Admin: 07/21/22 21:44 Dose: 8.6 mg Sitagliptin Phosphate (Sitagliptin Phosphate 100 Mg Tablet) 100 mg PO DAILY [facility] Last Admin: 07/22/22 09:24 Dose: 100 mg Topiramate (Topiramate 25 Mg Tablet) 100 mg PO BEDTIME [facility] Last Admin: 07/21/22 21:44 Dose: 100 mg Trazodone HCl (Trazodone Hcl 100 Mg Tablet) 100 mg PO BEDTIME [facility] Last Admin: 07/21/22 22:37 Dose: 100 mg Trazodone HCl (Trazodone Hcl 50 Mg Tablet) 50 mg PO BEDTIME PRN PRN Reason: Insomnia Last Admin: 07/21/22 22:38 Dose: 50 mg Trolamine Salicylate (Trolamine Salicylate 10 % Cream 85 Gm Tube) 1 appl TOPICAL QID PRN; Protocol PRN Reason: knee pain Last Admin: 07/19/22 15:40 Dose: 1 appl Ziprasidone (Ziprasidone 80 Mg Capsule) 80 mg PO BID@0900,1800 [facility] Last Admin: 07/22/22 09:27 Dose: 80 mg Allergies Allergies Allergy/AdvReac Type Severity Reaction Status Date / Time latex Allergy Rash Verified 07/08/22 16:13 lithium Allergy Unknown Verified 07/08/22 16:13 Assessment & Plan Assessment & Plan (1) Schizoaffective disorder, bipolar type: Status: Acute Code(s): F25.0 - Schizoaffective disorder, bipolar type Plan Abimbola is a 62 y.o. female who carries a dx of schizoaffective disorder, bipolar type. She presented to [facility] on 07/08/2022 due to erratic behavior, angry outbursts, and ?not feeling right,? does not feel her meds are helping. Pt was recently admitted to [facility]/ respite on 07/03/2022 due to similar presentation, i.e. not feeling like herself, however no med changes were made there.? Plan: Will re-start topamax at 50 mg QHS, as pt reports past benefit on this med for sleep and asks to re-start it, additionally it may aid in wt loss (questionable evidence base). Pt says she does not like olanzapine because it is wt gaining and would like to be tried a different antipsychotic mood stabilizer.? 07/10: Increase topamax to 100 mg QHS, start thorazine 50 mg QHS for sleep. Pt is insistent on discontinuing olanzapine, willing to cross taper with another antipsychotic for mood stability, agitation. Will trial geodon, start 40 mg BID and decrease olanzapine to 7.5 mg QHS. 07/11: No medication changes, pt is sleeping better. Continue plan to taper off olanzapine and titrate up on ziprasidone as needed. Q15 min safety checks, CV Monitor response to medications. Monitor for safety in the milieu. Discharge on stabilization. Patient seen. Chart reviewed. Discussed with team. Obtain collateral contact info?as needed 07/13/2022: Will lower olanzapine from 5 mg to 2.5 mg as ongoing taper and switch to ziprasidone. 07/14: no change 07/15 start aumentin 500mg po BID x 7 days for ear pain. continue all other meds as prescribed. 07/16- increase geodon to 60mg po BID. 07/17 continue Geodone 60mg po BID, adjust thorazine as pt continues to have difficulty sleeping to 100mg po qhs. 07/18 d/c thorazine as she reports blurry vision with it. add clonazepam scheduled, she does not want to try more effective mood stabilizer at this point. Will plan to contiune titration of geodone. 07/19- continue current medications, may adjust geodone to 80mg po BID. 07/20- continue geodon on 80 mg BID for mood lability 07/21- continue meds unchanged 07/22 continue current medications. I spent minutes with the patient and/or on the patient floor today, greater than?50% of which was spent counseling/coordinating care. Reason for contiued inpatient stay Substantial Risk for: inability to function
[2022-07-22 21:01] LABS: Glucose, Whole Blood 113 mg/dL (60-115)
[2022-07-22] MEDS: Topiramate 25 MG TABLET 100 MG PO (21:33)
[2022-07-22] MEDS: Sennosides 8.6 MG TABLET 17.2 MG PO (21:34)
[2022-07-22] MEDS: Atorvastatin Calcium 20 MG TABLET PO (21:38)
[2022-07-22 21:44] VITALS: BP 110/63; PULSE 98; RESP 16; TEMP 36.6; O2SAT 100
[2022-07-22] MEDS: traZODone HCL 50 MG TABLET PO (22:38)
[2022-07-22] MEDS: traZODone HCL 100 MG TABLET PO (22:38)
[2022-07-23] MEDS: hydrOXYzine HCL 50 MG TABLET PO (01:12)
[2022-07-23] MEDS: Acetaminophen 325 MG TABLET 650 MG PO ×2 (01:12→16:11)
[2022-07-23] MEDS: Ibuprofen 400 MG TABLET PO ×2 (06:09→19:43)
[2022-07-23 08:23] VITALS: BP 129/58; PULSE 97; RESP 18; TEMP 36.3; O2SAT 98
[2022-07-23] MEDS: Losartan Potassium 25 MG TABLET PO (08:31)
[2022-07-23] MEDS: metFORMIN HCl 1,000 MG TABLET 1000 MG PO ×2 (08:31→17:26)
[2022-07-23] MEDS: Ziprasidone 80 MG CAPSULE PO ×2 (08:31→17:26)
[2022-07-23] MEDS: clonazePAM 0.5 MG TABLET PO ×2 (08:31→21:32)
[2022-07-23] MEDS: Cyanocobalamin (Vitamin B-12) 1,000 MCG TABLET 1000 MCG PO (08:31)
[2022-07-23] MEDS: glipiZIDE XL 2.5 MG TAB.ER.24 PO (08:31)
[2022-07-23] MEDS: lamoTRIgine 100 MG TABLET 250 MG PO (08:31)
[2022-07-23] MEDS: Amoxicillin/Potassium Clav 500 MG TABLET PO ×2 (08:31→20:25)
[2022-07-23] MEDS: SITagliptin Phosphate 100 MG TABLET PO (08:32)
[2022-07-23 08:33] LABS: Glucose, Whole Blood 161 mg/dL (60-115)
--- NOTE | 2022-07-23 12:55 | HO.PSYCHPN ---
Subjective Subjective Date of Service: 07/23/22 Reason For Visit: [place] Subjective Notes: Conditional Voluntary Interim History: Pt reports sleep is inconsistent, sometimes sleeps well others she has difficulty. She denies SI/HI. She is taking medications as prescribed. She is visible on the unit, social with select peers. No behavioral concerns, less accusatory. Medication Compliance: Yes Side effects from medications: No Attending Groups: Yes Review of Systems Review of Systems Unremarkable Yes all other systems are reviewed and are negative Mental Status Exam Mental Status Exam Narrative: Appearance: casually groomed, fair hygiene in NAD Behavior:cooperative psychomotor:no agitation or retardation noted Speech:clear, normal rate/rhythm/volume, spontaneous Thought process:linear Thought content:feeling ignored, ear pain. Mood: fine Affect: expansive, labile SI:none HI:none VH/AH:talking to someone who was not there Delusions:paranoia Insight/judgment:fair x 2. Memory/cog: alert, oriented x 3. not formally tested. Diagnostics Vital Signs (24Hr): Vital Signs - 24 hr 07/24/22 22:02 07/25/22 06:00 Temperature 98.2 F 97.9 F Pulse Rate 87 95 Respiratory Rate 16 Blood Pressure 110/75 106/58 L Pulse Oximetry 100 99 Oxygen Delivery Method Room Air Room Air BMI result Body Mass Index 30.1 Labs Results: 07/08/22 16:20 07/24/22 09:44 Labs: Laboratory Results - last 48 hr 07/23/22 07/23/22 07/24/22 17:30 20:10 09:10 Creatinine Estim Creat Clear Calc Estimated GFR POC Glucose 91 103 131 H 07/24/22 07/24/22 09:44 17:41 Creatinine 0.73 Estim Creat Clear Calc 83.2 Estimated GFR > 60 POC Glucose 128 H Medications Medications Current Medications Acetaminophen (Acetaminophen 325 Mg Tablet) 650 mg PO Q6H PRN PRN Reason: Headache/Pain Mild Scale (1-3) Last Admin: 07/25/22 02:35 Dose: 650 mg Al Hydroxide/Mg Hydroxide (Magnesium Hydrox/Alum Hydrox 30 Ml Oral.Susp) 30 ml PO Q6H PRN PRN Reason: Heartburn/Nausea Amoxicillin/Clavulanate Potassium (Amoxicillin/Potassium Clav 500 Mg Tablet) 500 mg PO Q12H [facility]ULIAN Last Admin: 07/24/22 20:28 Dose: 500 mg Atorvastatin Calcium (Atorvastatin Calcium 20 Mg Tablet) 20 mg PO BEDTIME [facility] Last Admin: 07/24/22 20:28 Dose: 20 mg Clonazepam (Clonazepam 0.5 Mg Tablet) 0.5 mg PO BID [facility] Clotrimazole (Clotrimazole 1 % Cream 15 Gm Tube) 1 appl TOPICAL BID [facility] Last Admin: 07/24/22 20:30 Dose: 1 appl Cyanocobalamin (Cyanocobalamin (Vitamin B-12) 1,000 Mcg Tablet) 1,000 mcg PO DAILY [facility] Last Admin: 07/24/22 08:19 Dose: 1,000 mcg Glipizide (Glipizide Xl 2.5 Mg Tab.Er.24) 2.5 mg PO DAILY [facility] Last Admin: 07/24/22 08:20 Dose: 2.5 mg Hydroxyzine HCl (Hydroxyzine Hcl 50 Mg Tablet) 50 mg PO Q6H PRN PRN Reason: Anxiety Last Admin: 07/25/22 02:20 Dose: 50 mg Ibuprofen (Ibuprofen 400 Mg Tablet) 400 mg PO Q6H PRN PRN Reason: Pain, Moderate (Pain Scale 4-6 Last Admin: 07/24/22 06:19 Dose: 400 mg Lamotrigine (Lamotrigine 100 Mg Tablet) 250 mg PO DAILY [facility] Last Admin: 07/24/22 08:19 Dose: 250 mg Loperamide HCl (Loperamide Hcl 2 Mg Capsule) 4 mg PO ONCE PRN PRN Reason: Diarrhea Loperamide HCl (Loperamide Hcl 2 Mg Capsule) 2 mg PO Q2H PRN PRN Reason: Diarrhea Losartan Potassium (Losartan Potassium 25 Mg Tablet) 25 mg PO DAILY [facility]; Protocol Last Admin: 07/24/22 08:19 Dose: 25 mg Magnesium Hydroxide (Milk Of Magnesia 30 Ml Oral.Susp) 30 ml PO DAILY PRN PRN Reason: Constipation Metformin HCl (Metformin Hcl 1,000 Mg Tablet) 1,000 mg PO BIDWM [facility] Last Admin: 07/24/22 17:12 Dose: 1,000 mg Nicotine Polacrilex (Nicotine Polacrilex 2 Mg Gum) 2 mg BUCCAL Q2H PRN PRN Reason: Nicotine Cravings Senna (Sennosides 8.6 Mg Tablet) 17.2 mg PO BEDTIME [facility] Last Admin: 07/24/22 20:28 Dose: 8.6 mg Sitagliptin Phosphate (Sitagliptin Phosphate 100 Mg Tablet) 100 mg PO DAILY [facility] Last Admin: 07/24/22 08:19 Dose: 100 mg Topiramate (Topiramate 25 Mg Tablet) 100 mg PO BEDTIME [facility] Last Admin: 07/24/22 21:44 Dose: 100 mg Trazodone HCl (Trazodone Hcl 100 Mg Tablet) 100 mg PO BEDTIME [facility] Last Admin: 07/24/22 21:44 Dose: 100 mg Trazodone HCl (Trazodone Hcl 50 Mg Tablet) 50 mg PO BEDTIME PRN PRN Reason: Insomnia Last Admin: 07/24/22 21:47 Dose: 50 mg Trolamine Salicylate (Trolamine Salicylate 10 % Cream 85 Gm Tube) 1 appl TOPICAL QID PRN; Protocol PRN Reason: knee pain Last Admin: 07/24/22 18:24 Dose: 1 appl Ziprasidone (Ziprasidone 80 Mg Capsule) 80 mg PO BID@0900,1800 [facility] Last Admin: 07/24/22 17:12 Dose: 80 mg Allergies Allergies Allergy/AdvReac Type Severity Reaction Status Date / Time latex Allergy Rash Verified 07/08/22 16:13 lithium Allergy Unknown Verified 07/08/22 16:13 Assessment & Plan Assessment & Plan (1) Schizoaffective disorder, bipolar type: Status: Acute Code(s): F25.0 - Schizoaffective disorder, bipolar type Plan Abimbola is a 62 y.o. female who carries a dx of schizoaffective disorder, bipolar type. She presented to [facility] on 07/08/2022 due to erratic behavior, angry outbursts, and ?not feeling right,? does not feel her meds are helping. Pt was recently admitted to [facility]/ respite on 07/03/2022 due to similar presentation, i.e. not feeling like herself, however no med changes were made there.? Plan: Will re-start topamax at 50 mg QHS, as pt reports past benefit on this med for sleep and asks to re-start it, additionally it may aid in wt loss (questionable evidence base). Pt says she does not like olanzapine because it is wt gaining and would like to be tried a different antipsychotic mood stabilizer.? 07/10: Increase topamax to 100 mg QHS, start thorazine 50 mg QHS for sleep. Pt is insistent on discontinuing olanzapine, willing to cross taper with another antipsychotic for mood stability, agitation. Will trial geodon, start 40 mg BID and decrease olanzapine to 7.5 mg QHS. 07/11: No medication changes, pt is sleeping better. Continue plan to taper off olanzapine and titrate up on ziprasidone as needed. Q15 min safety checks, CV Monitor response to medications. Monitor for safety in the milieu. Discharge on stabilization. Patient seen. Chart reviewed. Discussed with team. Obtain collateral contact info?as needed 07/13/2022: Will lower olanzapine from 5 mg to 2.5 mg as ongoing taper and switch to ziprasidone. 07/14: no change 07/15 start aumentin 500mg po BID x 7 days for ear pain. continue all other meds as prescribed. 07/16- increase geodon to 60mg po BID. 07/17 continue Geodone 60mg po BID, adjust thorazine as pt continues to have difficulty sleeping to 100mg po qhs. 07/18 d/c thorazine as she reports blurry vision with it. add clonazepam scheduled, she does not want to try more effective mood stabilizer at this point. Will plan to contiune titration of geodone. 07/19- continue current medications, may adjust geodone to 80mg po BID. 07/20- continue geodon on 80 mg BID for mood lability 07/21- continue meds unchanged 07/22 continue current medications. 07/23 continue current medications. I spent minutes with the patient and/or on the patient floor today, greater than?50% of which was spent counseling/coordinating care. Reason for contiued inpatient stay Substantial Risk for: inability to function
[2022-07-23 17:33] LABS: Glucose, Whole Blood 91 mg/dL (60-115)
[2022-07-23 20:00] VITALS: BP 115/75; PULSE 95; TEMP 36.5; O2SAT 100
[2022-07-23] MEDS: Clotrimazole 1 % Cream 15 GM TUBE 1 APPL TOPICAL (20:24)
[2022-07-23] MEDS: Atorvastatin Calcium 20 MG TABLET PO (20:25)
[2022-07-23] MEDS: Sennosides 8.6 MG TABLET 17.2 MG PO (20:26)
[2022-07-23 20:43] LABS: Glucose, Whole Blood 103 mg/dL (60-115)
[2022-07-23] MEDS: Topiramate 25 MG TABLET 100 MG PO (21:32)
[2022-07-23] MEDS: traZODone HCL 100 MG TABLET PO (21:32)
[2022-07-24] MEDS: hydrOXYzine HCL 50 MG TABLET PO (01:14)
[2022-07-24] MEDS: Acetaminophen 325 MG TABLET 650 MG PO (01:14)
[2022-07-24] MEDS: traZODone HCL 50 MG TABLET PO ×2 (01:14→21:47)
[2022-07-24] MEDS: Ibuprofen 400 MG TABLET PO (06:19)
[2022-07-24 08:18] VITALS: BP 120/60; PULSE 91; RESP 20; TEMP 36.4; O2SAT 97
[2022-07-24] MEDS: Cyanocobalamin (Vitamin B-12) 1,000 MCG TABLET 1000 MCG PO (08:19)
[2022-07-24] MEDS: lamoTRIgine 100 MG TABLET 250 MG PO (08:19)
[2022-07-24] MEDS: Amoxicillin/Potassium Clav 500 MG TABLET PO ×2 (08:19→20:28)
[2022-07-24] MEDS: Losartan Potassium 25 MG TABLET PO (08:19)
[2022-07-24] MEDS: metFORMIN HCl 1,000 MG TABLET 1000 MG PO ×2 (08:19→17:12)
[2022-07-24] MEDS: SITagliptin Phosphate 100 MG TABLET PO (08:19)
[2022-07-24] MEDS: Ziprasidone 80 MG CAPSULE PO ×2 (08:20→17:12)
[2022-07-24] MEDS: glipiZIDE XL 2.5 MG TAB.ER.24 PO (08:20)
[2022-07-24] MEDS: clonazePAM 0.5 MG TABLET PO ×2 (08:20→22:06)
[2022-07-24 09:14] LABS: Glucose, Whole Blood 131 mg/dL (60-115)
[2022-07-24 10:48] LABS: Creatinine Clr Calc Pharmacy 83.2; Estimated Glomerular Filt Rate > 60
--- NOTE | 2022-07-24 12:29 | P.PNPSI_ITS ---
Subjective Subjective Date of Service: 07/24/22 Reason For Visit: [place] Subjective Notes: Conditional Voluntary Interim History: Pt reports feeling well. She states she feels calmer, She is less intrusive with peers. Much less accusatory towards others. She denies SI/HI. She reports jaw pain, not ear pain. She also reports knee pain. No behavioral concerns. Medication Compliance: Yes Side effects from medications: No Review of Systems Review of Systems Unremarkable Yes all other systems are reviewed and are negative Mental Status Exam Mental Status Exam Narrative: Appearance: casually groomed, fair hygiene in NAD Behavior:cooperative psychomotor:no agitation or retardation noted Speech:clear, normal rate/rhythm/volume, spontaneous Thought process:linear Thought content:feeling ignored, ear pain. Mood: fine Affect: expansive, labile SI:none HI:none VH/AH:talking to someone who was not there Delusions:paranoia Insight/judgment:fair x 2. Memory/cog: alert, oriented x 3. not formally tested. Diagnostics Vital Signs (24Hr): Vital Signs - 24 hr 07/24/22 22:02 07/25/22 06:00 Temperature 98.2 F 97.9 F Pulse Rate 87 95 Respiratory Rate 16 Blood Pressure 110/75 106/58 L Pulse Oximetry 100 99 Oxygen Delivery Method Room Air Room Air BMI result Body Mass Index 30.1 Labs Results: 07/08/22 16:20 07/24/22 09:44 Labs: Laboratory Results - last 48 hr 07/23/22 07/23/22 07/24/22 17:30 20:10 09:10 Creatinine Estim Creat Clear Calc Estimated GFR POC Glucose 91 103 131 H 07/24/22 07/24/22 09:44 17:41 Creatinine 0.73 Estim Creat Clear Calc 83.2 Estimated GFR > 60 POC Glucose 128 H Medications Medications Current Medications Acetaminophen (Acetaminophen 325 Mg Tablet) 650 mg PO Q6H PRN PRN Reason: Headache/Pain Mild Scale (1-3) Last Admin: 07/25/22 02:35 Dose: 650 mg Al Hydroxide/Mg Hydroxide (Magnesium Hydrox/Alum Hydrox 30 Ml Oral.Susp) 30 ml PO Q6H PRN PRN Reason: Heartburn/Nausea Amoxicillin/Clavulanate Potassium (Amoxicillin/Potassium Clav 500 Mg Tablet) 500 mg PO Q12H [facility] Last Admin: 07/24/22 20:28 Dose: 500 mg Atorvastatin Calcium (Atorvastatin Calcium 20 Mg Tablet) 20 mg PO BEDTIME [facility] Last Admin: 07/24/22 20:28 Dose: 20 mg Clonazepam (Clonazepam 0.5 Mg Tablet) 0.5 mg PO BID [facility] Clotrimazole (Clotrimazole 1 % Cream 15 Gm Tube) 1 appl TOPICAL BID [facility] Last Admin: 07/24/22 20:30 Dose: 1 appl Cyanocobalamin (Cyanocobalamin (Vitamin B-12) 1,000 Mcg Tablet) 1,000 mcg PO DAILY [facility] Last Admin: 07/24/22 08:19 Dose: 1,000 mcg Glipizide (Glipizide Xl 2.5 Mg Tab.Er.24) 2.5 mg PO DAILY [facility] Last Admin: 07/24/22 08:20 Dose: 2.5 mg Hydroxyzine HCl (Hydroxyzine Hcl 50 Mg Tablet) 50 mg PO Q6H PRN PRN Reason: Anxiety Last Admin: 07/25/22 02:20 Dose: 50 mg Ibuprofen (Ibuprofen 400 Mg Tablet) 400 mg PO Q6H PRN PRN Reason: Pain, Moderate (Pain Scale 4-6 Last Admin: 07/24/22 06:19 Dose: 400 mg Lamotrigine (Lamotrigine 100 Mg Tablet) 250 mg PO DAILY [facility] Last Admin: 07/24/22 08:19 Dose: 250 mg Loperamide HCl (Loperamide Hcl 2 Mg Capsule) 4 mg PO ONCE PRN PRN Reason: Diarrhea Loperamide HCl (Loperamide Hcl 2 Mg Capsule) 2 mg PO Q2H PRN PRN Reason: Diarrhea Losartan Potassium (Losartan Potassium 25 Mg Tablet) 25 mg PO DAILY [facility]; Protocol Last Admin: 07/24/22 08:19 Dose: 25 mg Magnesium Hydroxide (Milk Of Magnesia 30 Ml Oral.Susp) 30 ml PO DAILY PRN PRN Reason: Constipation Metformin HCl (Metformin Hcl 1,000 Mg Tablet) 1,000 mg PO BIDWM [facility] Last Admin: 07/24/22 17:12 Dose: 1,000 mg Nicotine Polacrilex (Nicotine Polacrilex 2 Mg Gum) 2 mg BUCCAL Q2H PRN PRN Reason: Nicotine Cravings Senna (Sennosides 8.6 Mg Tablet) 17.2 mg PO BEDTIME [facility] Last Admin: 07/24/22 20:28 Dose: 8.6 mg Sitagliptin Phosphate (Sitagliptin Phosphate 100 Mg Tablet) 100 mg PO DAILY [facility] Last Admin: 07/24/22 08:19 Dose: 100 mg Topiramate (Topiramate 25 Mg Tablet) 100 mg PO BEDTIME [facility] Last Admin: 07/24/22 21:44 Dose: 100 mg Trazodone HCl (Trazodone Hcl 100 Mg Tablet) 100 mg PO BEDTIME [facility] Last Admin: 07/24/22 21:44 Dose: 100 mg Trazodone HCl (Trazodone Hcl 50 Mg Tablet) 50 mg PO BEDTIME PRN PRN Reason: Insomnia Last Admin: 07/24/22 21:47 Dose: 50 mg Trolamine Salicylate (Trolamine Salicylate 10 % Cream 85 Gm Tube) 1 appl TOPICAL QID PRN; Protocol PRN Reason: knee pain Last Admin: 07/24/22 18:24 Dose: 1 appl Ziprasidone (Ziprasidone 80 Mg Capsule) 80 mg PO BID@0900,1800 [facility] Last Admin: 07/24/22 17:12 Dose: 80 mg Allergies Allergies Allergy/AdvReac Type Severity Reaction Status Date / Time latex Allergy Rash Verified 07/08/22 16:13 lithium Allergy Unknown Verified 07/08/22 16:13 Assessment & Plan Assessment & Plan (1) Schizoaffective disorder, bipolar type: Status: Acute Code(s): F25.0 - Schizoaffective disorder, bipolar type Plan Abimbola is a 62 y.o. female who carries a dx of schizoaffective disorder, bipolar type. She presented to [facility] on 07/08/2022 due to erratic behavior, angry outbursts, and ?not feeling right,? does not feel her meds are helping. Pt was recently admitted to [facility]/ respite on 07/03/2022 due to similar presentation, i.e. not feeling like herself, however no med changes were made there.? Plan: Will re-start topamax at 50 mg QHS, as pt reports past benefit on this med for sleep and asks to re-start it, additionally it may aid in wt loss (questionable evidence base). Pt says she does not like olanzapine because it is wt gaining and would like to be tried a different antipsychotic mood stabilizer.? 07/10: Increase topamax to 100 mg QHS, start thorazine 50 mg QHS for sleep. Pt is insistent on discontinuing olanzapine, willing to cross taper with another antipsychotic for mood stability, agitation. Will trial geodon, start 40 mg BID and decrease olanzapine to 7.5 mg QHS. 07/11: No medication changes, pt is sleeping better. Continue plan to taper off olanzapine and titrate up on ziprasidone as needed. Q15 min safety checks, CV Monitor response to medications. Monitor for safety in the milieu. Discharge on stabilization. Patient seen. Chart reviewed. Discussed with team. Obtain collateral contact info?as needed 07/13/2022: Will lower olanzapine from 5 mg to 2.5 mg as ongoing taper and switch to ziprasidone. 07/14: no change 07/15 start aumentin 500mg po BID x 7 days for ear pain. continue all other meds as prescribed. 07/16- increase geodon to 60mg po BID. 07/17 continue Geodone 60mg po BID, adjust thorazine as pt continues to have difficulty sleeping to 100mg po qhs. 07/18 d/c thorazine as she reports blurry vision with it. add clonazepam scheduled, she does not want to try more effective mood stabilizer at this point. Will plan to contiune titration of geodone. 07/19- continue current medications, may adjust geodone to 80mg po BID. 07/20- continue geodon on 80 mg BID for mood lability 07/21- continue meds unchanged 07/22 continue current medications. 07/23 continue current medications. 07/24 continue current medications. I spent minutes with the patient and/or on the patient floor today, greater than?50% of which was spent counseling/coordinating care. Reason for contiued inpatient stay Substantial Risk for: inability to function
[2022-07-24] MEDS: Clotrimazole 1 % Cream 15 GM TUBE 1 APPL TOPICAL ×2 (12:35→20:30)
[2022-07-24 17:52] LABS: Glucose, Whole Blood 128 mg/dL (60-115)
[2022-07-24] MEDS: Trolamine Salicylate 10 % Cream 85 GM TUBE 1 APPL TOPICAL (18:24)
[2022-07-24] MEDS: Sennosides 8.6 MG TABLET 17.2 MG PO (20:28)
[2022-07-24] MEDS: Atorvastatin Calcium 20 MG TABLET PO (20:28)
[2022-07-24] MEDS: Topiramate 25 MG TABLET 100 MG PO (21:44)
[2022-07-24] MEDS: traZODone HCL 100 MG TABLET PO (21:44)
[2022-07-24 22:02] VITALS: BP 110/75; PULSE 87; TEMP 36.8; O2SAT 100
[2022-07-25] MEDS: hydrOXYzine HCL 50 MG TABLET PO (02:20)
[2022-07-25] MEDS: Acetaminophen 325 MG TABLET 650 MG PO ×3 (02:35→18:57)
[2022-07-25 06:00] VITALS: BP 106/58; PULSE 95; RESP 16; TEMP 36.6; O2SAT 99
--- NOTE | 2022-07-25 06:09 | PC.NURSE ---
reports experiencing diarrhea. has been on antibiotic since the . message sent to provider.
--- NOTE | 2022-07-25 06:51 | PC.NURSE ---
reported diarrhea but when offered imodium refused
[2022-07-25 07:00] VITALS: BMI 30.3
[2022-07-25] MEDS: Ziprasidone 80 MG CAPSULE PO ×2 (09:03→17:55)
[2022-07-25] MEDS: metFORMIN HCl 1,000 MG TABLET 1000 MG PO ×2 (09:03→17:55)
[2022-07-25] MEDS: lamoTRIgine 100 MG TABLET 250 MG PO (10:17)
[2022-07-25] MEDS: glipiZIDE XL 2.5 MG TAB.ER.24 PO (10:18)
[2022-07-25] MEDS: Losartan Potassium 25 MG TABLET PO (10:18)
[2022-07-25] MEDS: Cyanocobalamin (Vitamin B-12) 1,000 MCG TABLET 1000 MCG PO (10:19)
[2022-07-25] MEDS: SITagliptin Phosphate 100 MG TABLET PO (10:19)
[2022-07-25] MEDS: clonazePAM 0.5 MG TABLET PO ×2 (10:20→23:08)
[2022-07-25] MEDS: Loperamide HCl 2 MG CAPSULE 4 MG PO (16:46)
[2022-07-25 18:00] VITALS: BP 117/68; PULSE 98; RESP 16; TEMP 36.1; O2SAT 100
[2022-07-25] MEDS: Topiramate 25 MG TABLET 100 MG PO (21:20)
[2022-07-25] MEDS: Atorvastatin Calcium 20 MG TABLET PO (21:20)
[2022-07-25] MEDS: traZODone HCL 100 MG TABLET PO (22:40)
[2022-07-26] MEDS: Acetaminophen 325 MG TABLET 650 MG PO (03:17)
[2022-07-26 08:42] VITALS: BP 108/71; PULSE 92; RESP 16; TEMP 36.4; O2SAT 100
[2022-07-26] MEDS: Cyanocobalamin (Vitamin B-12) 1,000 MCG TABLET 1000 MCG PO (09:24)
[2022-07-26] MEDS: lamoTRIgine 100 MG TABLET 250 MG PO (09:24)
[2022-07-26] MEDS: Ziprasidone 80 MG CAPSULE PO (09:24)
[2022-07-26] MEDS: glipiZIDE XL 2.5 MG TAB.ER.24 PO (09:24)
[2022-07-26] MEDS: metFORMIN HCl 1,000 MG TABLET 1000 MG PO (09:24)
[2022-07-26] MEDS: SITagliptin Phosphate 100 MG TABLET PO (09:24)
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
== END 2022-07-26 13:00 | disposition home health service (06) | DRG 885 ==
LOC: HO.ED 07-09 11:32 → HO.PADLT16 07-09 14:24
PROVIDERS: Physician Assistant; Registered Nurse; Admitting Provider Psychiatry & Neurology Psychiatry; Emergency Provider Internal Medicine; Visit Provider Social Worker
DX: F25.0 Schizoaffective disorder, bipolar type (principal); E78.5 Hyperlipidemia, unspecified; E11.9 Type 2 diabetes mellitus without complications; Z20.822 Contact with and (suspected) exposure to COVID-19; Z91.040 Latex allergy status; Z88.8 Allergy status to other drugs, medicaments and biological substances; Z79.84 Long term (current) use of oral hypoglycemic drugs; Z79.899 Other long term (current) drug therapy
CPT/HCPCS: 36415; 80053; 80061; 80307; 81001; 82077; 82565; 82607; 82746; 82947; 83036; 83735; 84439; 84443; 85025; 87086; 87635; 93005; 99284